=== PATIENT | male | born 1950 | race Asian ===

== ENCOUNTER 2019-11-28 18:45 | Emergency (ER) | payer MEDICARE, SELFPAY ==
--- NOTE | ~2019-11-28 | XR_ITS ---
EXAMINATION: XR shoulder RT min 2V DATE: 11/28/2019 19:40 INDICATION: Right shoulder pain. Fall. TECHNIQUE: 4 views of right shoulder were obtained. COMPARISON: None. FINDINGS: Bone alignment is normal. No fracture. There is mild osteoarthritis of glenohumeral joint a nd moderate osteoarthritis of acromioclavicular joint. There is a punctate calcification in the area of subacromial/subdeltoid bursa. IMPRESSION: 1. Polyarticular osteoarthritis. Reviewed, dictated and finalized at location A.
--- NOTE | ~2019-11-28 | CT_ITS ---
EXAMINATION: CT brain wo con DATE: 11/28/2019 19:32 INDICATION: Head injury. TECHNIQUE: Computed tomography (CT) of the head was performed without intravenous contrast. The mA wa s adjusted according to patient size. Iterative reconstruction technique was employed. The dose-lengt h product was 605.33 mGy-cm. COMPARISON: None FINDINGS: There is no intracranial hemorrhage, acute infarction, or abnormal intracranial mass lesion . The ventricles are normal in size. There is mild mucosal thickening in the paranasal sinuses. The m astoid air cells are normal. The orbits are normal. IMPRESSION: 1. Normal brain. Reviewed, dictated and finalized at location A. IMPRESSION: 1. Normal brain.
[2019-11-28 18:45] VITALS: BP 148/76; PULSE 60; RESP 19; TEMP 36.5; O2SAT 98
--- NOTE | 2019-11-28 18:50 | PC.NURSE ---
Pt unable to provide name of blood pressure medication he takes at this time,family unaware of name
--- NOTE | 2019-11-28 19:19 | ED.UPPEXIN ---
HPI - Extremity Injury (Upper) General Chief Complaint: Extremity Injury, Upper Stated Complaint: shoulder pain Time Seen by Provider: 11/28/19 19:02 Source: patient Mode of arrival: ambulatory Limitations: language barrier (Speaks Greenlandic with limited Spanish, son bilingual and translating) History of Present Illness HPI narrative: Patient is a 69-year-old male who presents to the emergency department with complaint of right shoulder injury from a fall. Patient was carrying a box of supplies and went up 1 step, tripping and falling. He fell into the side of the house striking his right shoulder and at some point hit the top of his head. Patient is uncertain if there was loss of consciousness. Patient denies any neck or back pain. He denies any other extremity injury. complaint: injury to: right and shoulder Other injuries: head Place: home Context: fall Associated symptoms: denies other symptoms Related Data Home Medications Medication Instructions Recorded Confirmed Unable to Obtain Home Medications 11/28/19 11/28/19 Allergies Allergy/AdvReac Type Severity Reaction Status Date / Time No Known Allergies Allergy Verified 11/28/19 18:49 Review of Systems Review of Systems: All systems reviewed & are unremarkable except as noted in HPI and below PMFSH Past Medical History Medical History (Updated 11/28/19 @ 20:12 by Afshan Casas MD) Hyperlipidemia Hypertension Surgical History Surgical History (Updated 11/28/19 @ 19:29 by Afshan Casas MD) No significant past surgical history Social History Social History (Updated 11/28/19 @ 19:29 by Afshan Casas MD) Smoking status: Former smoker Living arrangements: with family Gender identity (if verbalized by the patient): Male Exam Const: General: cooperative, no acute distress and alert Nutritional Appearance: well nourished Orientation/consciousness: patient oriented x3 Limitations: no limitations HENMT: Head images: 1. Abrasions/contusions Eyes: Conjunctivae: conjunctivae normal Pupils: Equal, round and reactive pupils present Resp: Effort & Inspection: normal respiratory effort Auscultation: clear to auscultation bilaterally Cardio: Rate: regular rate Rhythm: regular rhythm GI: GI Palp: Yes Soft to palpation and No Tenderness to palpation present (GI) Auscultation: normal bowel sounds Skin: General skin exam: normal color Neuro: General: patient oriented x3 Cognition (Neuro): normal cognition Speech: normal speech Extrem: General: normal to inspection, full ROM and no clubbing, cyanosis or edema Right upper extremity: shoulder/upper arm tenderness and abnormal ROM pain with active ROM Psych: Mental Status: mental status grossly normal Affect: normal affect Attitude: cooperative Course Course Emergency Course: Patient without any significant injuries noted on imaging. Patient ambulatory in the hallway in the ED with steady gait. Advised importance of primary care follow-up if necessary for any persistent symptoms and to return to the ED for any worsening symptoms or issues. Vital Signs Vital signs: Vital Signs Temperature 97.7 F 11/28/19 18:45 Pulse Rate 60 11/28/19 18:45 Respiratory Rate 19 11/28/19 18:45 Blood Pressure 148/76 H 11/28/19 18:45 Pulse Oximetry 98 11/28/19 18:45 Temperature 97.7 F 11/28/19 18:45 Pulse Rate 60 11/28/19 18:45 Respiratory Rate 19 11/28/19 18:45 Blood Pressure 148/76 H 11/28/19 18:45 Pulse Oximetry 98 11/28/19 18:45 MDM - Extremity Injury (Upper) Imaging Data Radiologist's impression: ITS Impressions Head CT 11/28/19 19:32 IMPRESSION: 1. Normal brain. Shoulder X-Ray 11/28/19 19:42 IMPRESSION: 1. Polyarticular osteoarthritis. Critical Care Time Critical Care Time Critical Care Time: No Discharge Plan Discharge Clinical Impression: Minor closed head injury Contusion of right should
--- NOTE | 2019-11-28 19:22 | PC.NURSE ---
Patient being taken to radiology.
[2019-11-28] MEDS: ACETAMINOPHEN 500 MG TABLET 1000 MG PO (19:41)
[2019-11-28 20:22] VITALS: BP 135/80; PULSE 60; RESP 16; O2SAT 99
== END 2019-11-28 20:24 | disposition home or self-care (01) ==
PROVIDERS: Emergency Provider Emergency Medicine; PCP Internal Medicine
DX: S40.011A Contusion of right shoulder, initial encounter (principal); S09.90XA Unspecified injury of head, initial encounter; I10 Essential (primary) hypertension; E78.5 Hyperlipidemia, unspecified; Z87.891 Personal history of nicotine dependence; W10.9XXA Fall (on) (from) unspecified stairs and steps, initial encounter
CPT/HCPCS: 70450; 73030; 99284; A9270

== ENCOUNTER 2024-08-23 08:33 | Outpatient (CLI) | payer MEDICARE, SELFPAY ==
--- NOTE | ~2024-08-23 | XR_ITS ---
Left ankle Technique: AP, oblique, and lateral views were obtained. Clinical History: Pain Findings: No acute fracture or dislocation is seen. Osseous alignment is anatomic. Ankle mortise and other visualized joint spaces are preserved. Soft tissues are otherwise unremarkable. Impression: Unremarkable left ankle. Reviewed, dictated and finalized at location . 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
--- NOTE | ~2024-08-23 | XR_ITS ---
Right ankle Technique: AP, oblique, and lateral views were obtained. Clinical History: Pain Findings: No acute fracture or dislocation is seen. Osseous alignment is anatomic. Ankle mortise and other visualized joint spaces are preserved. Soft tissues are otherwise unremarkable. Impression: No acute abnormality. Reviewed, dictated and finalized at [facility]. [employer] Impression: No acute abnormality.
--- OUTSIDE RECORDS SUMMARY | 2024-08-23 08:54 | XMS_ITS | Encounter Summary ---
Author Organization [facility] Address [address] [place] [address]. [place], [place] [id number] [place] [id number] Care Team Providers Care Unhairer Name Role Phone Kenneth Frederick MD Primary Care Provider [phone] Encounter Details Date Type Department Care Team (Latest Contact Info) Description 06/02/2018 Abstract [facility] , Giana Quintero MD Social History Tobacco Use Types Packs/Day Years Used Date Smoking Tobacco: Never Assessed Sex and Gender Information Value Date Recorded Sex Assigned at Not on file Legal Sex Male 7:32 PM CDT Gender Identity Not on file Sexual Orientation Not on file documented as of this encounter Plan of Treatment Not on file documented as of this encounter Visit Diagnoses Not on filedocumented in this encounter Care Teams Unhairer Relationship Specialty Start Date End Date Kenneth Frederick MD PCP - General INTERNAL MEDICINE 09/24/18 documented as of this encounter
--- OUTSIDE RECORDS SUMMARY | 2024-08-23 08:54 | XMS_ITS | Referral Summary ---
Author Organization [facility] Address [address] [place] [address] Care Team Providers Care Projector Booth Operator Name Role Phone Stefano Driver DO Unavailable [phone] Kenneth Frederick MD Primary Care Provider [phone] Allergies No known active allergies Medications rosuvastatin (CRESTOR) 20 mg tablet TAKE ONE TABLET BY MOUTH ONCE DAILY 01/27/2020 Active psyllium 0.52 gram capsule Take 1 capsule every day by oral route. 07/30/2019 Active lisinopriL (PRINIVIL,ZESTR IL) 10 mg tablet Take 1 tablet(s) every day by oral route. 01/27/2020 Active cholecalciferol (VITAMIN D-3) 5,000 unit tablet Take 1 tablet every day by oral route. 01/27/2020 Active carvediloL (Coreg) 6.25 mg tablet Take 1 tablet(s) twice a day by oral route. 01/27/2020 Active aspirin 81 mg enteric coated tablet Take 1 tablet every day by oral route. 01/27/2020 Active omeprazole (PriLOSEC) 20 mg capsule TAKE ONE CAPSULE BY MOUTH ONCE DAILY NEEDED 04/15/2021 Active folic acid (FOLVITE) 1 mg tablet TAKE 1 TABLET BY MOUTH EVERY DAY 30 tablet 11/19/2021 Active Active Problems Problem Noted Date Diagnosed Date Anemia 04/24/2021 Benign hypertension 04/24/2021 Benign prostatic hyperplasia without urinary obs truction 04/24/2021 Hyperlipidemia 04/24/2021 Immunizations Name Administration Dates Next Due Influenza, Quadrivalent, Split, Intramuscular ,04/27/2018 Influenza, Trivalent, High D ose, Split, Preservative Free, Intramuscular 06/26/2017 Pneumococcal Conjugate PCV 13 03/22/2016 Pneumococcal Polysaccharide PPV23 10/08/2017 Tdap 03/22/2016 ZOSTER LIVE 04/11/2019 Social History Tobacco Use Types Packs/Day Years Used Date Smoking Tobacco: Never Smokeless Tobacco: Never AUDIT-C Answer Date Recorded Q1: How often do you have a drink containing alc ohol? Never 04/26/2021 Q2: How many drinks containi ng alcohol do you have on a typical day when you are drinking? 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 Gender Identity Not on file Sexual Orientation Not on file Occupation Industry Job Start Date Job End Date Retired Not on file Not on file Not on file Last Filed Vital Signs Vital Sign Reading Time Taken Comments Blood Pressure 167/89 04/26/2021 8:44 AM CDT Pulse 56 04/26/2021 8:44 AM CDT Temperature 36.4 ??C (97.5 ??F) 04/26/2021 8:44 AM CD T Respiratory Rate 16 04/26/2021 8:44 AM CDT Oxygen Saturation 98% 04/26/2021 8:44 AM CDT Inhaled Oxygen Concentration - - Weight 78.9 kg (174 lb) 04/26/2021 8:44 AM CDT Height 163.8 cm (5' 4.5 ) 04/26/2021 8:44 AM CDT Body Mass Index 29.41 04/26/2021 8:44 AM CDT Plan of Treatment Not on file Insurance MEDICARE MEDICARE Care Teams Projector Booth Operator Relationship Specialty Start Date End Date Kenneth Frederick MD [address] [facility] [address] [place] [address] PCP - General Internal Medicine 04/24/21 Stefano Driver DO [address] [place] [address] MEDICAL ONCOLOGY, [facility] [address] [place] [address] Medical Oncologist/Cargoman Hematology and Oncology 04/24/21
--- OUTSIDE RECORDS SUMMARY | 2024-08-23 08:54 | XMS_ITS | Clinical Summary ---
Author Organization [facility] Address [address] [place] [address]. [place], [place] [id number] [place] [address] Care Team Providers Care Hand Striper Name Role Phone Kenneth Frederick MD Primary Care Provider Allergies No known active allergies Medications aspirin 81 MG chewable tablet 05/11/2014 Act kerry atenolol 50 MG tablet 06/19/2012 Active atorvastatin 20 MG tablet 07/17/2012 Active carvedilol 6.25 MG tablet 07/23/2018 Active lisinopril 10 MG tablet 07/23/2018 Active omeprazole 20 MG capsule 07/23/2018 Active Active Problems No known active problems Family History Relation Status Comments Father Mother Social History Tobacco Use Types Packs/Day Years Used Date Smoking Tobacco: Never Smokeless Tobacco: Never Alcohol Use Standard Drinks/Week Comments Yes 0 (1 standard drink = 0.6 oz pur e alcohol) socially PHQ-2 Answer Date Recorded PHQ-2 Score - If the patient scores above 3, please move on to questions 3-9 0 03/20/2021 Sex and Gender Information Value Date Recorded Sex Assigned at Not on file Legal Sex Male 7:32 PM CDT Gender Identity Not on file Sexual Orientation Not on file Last Filed Vital Signs Vital Sign Reading Time Taken Comments Blood Pressure 122/70 03/20/2021 11:40 AM CDT Pulse 60 03/20/2021 11:40 AM CDT Temperature 36.2 ??C (97.2 ??F) 03/20/2021 11:40 AM C DT Respiratory Rate 16 03/20/2021 11:40 AM CDT Oxygen Saturation 99% 03/20/2021 11:40 AM CDT Inhaled Oxygen Concentration - - Weight 76.7 kg (169 lb) 03/20/2021 11:40 AM CDT Height 167.6 cm (5' 6 ) 03/20/2021 11:40 AM CDT Body Mass Index 27.28 03/20/2021 11:40 AM CDT Plan of Treatment Health Maintenance Due Date Last Done Comments Colorectal Cancer Screening Colonoscopy (10 Years) 1950 Hepatitis C 1968 Annual Medicare Wellness Visit 2015 Zoster Vaccines (2 of 3) 06/06/2019 04/11/2019 COVID-19 Vaccine (3 - 2023-2 5 season) 2024 11/11/2020, 11/11/2020, 10/21/2020 Influenza Adult (#1) 2024 07/02/2019, 04/27/2018 RSV Immunization or 60+ Years (1 - 1-dose 75+ series) 2025 DTaP, Tdap and Td Vaccines ( 2 - Td or Tdap) 03/22/2026 03/22/2016 Pneumococcal Vaccine: 65+ Years Completed 10/08/2017, 03/22/2016 Meningococcal B Vaccine Aged Out No l onger eligible based on patient's age to complete this topic Meningococcal Vaccine Aged Out No yvonne jocelyn eligible based on patient's age to complete this topic RSV Immunizations Under 20 Months Aged Out No longer eligible b ased on patient's age to complete this topic Insurance MEDICARE Care Teams Hand Striper Relationship Specialty Start Date End Date Kenneth Frederick MD PCP - General INTERNAL MEDICINE 09/24/18
--- OUTSIDE RECORDS SUMMARY | 2024-08-23 08:54 | XMS_ITS | Data Portability ---
Author Organization [facility] [employer] Address [address] [address] Care Team Providers Care Manager Of Drilling Name Role Phone KENNETH FREDERICK Primary Care Provider Assessment Encounter Date Assessment Date Assessment LastModified by Organization Details LastModified Time 11/27/2022 11/27/2022 Patient presented for follow up. Studies ordered as below. Discussed plan with patient/careg cher, who expressed understanding . Follow up as noted below. Not available 11/27/2022 09:04:29 02/27/2023 02/27/2023 Patient presented for follow up. Studies ordered as below. Discussed plan with patient/careg cher, who expressed understanding . Follow up as noted below. Not available 02/27/2023 09:11:39 09/15/2023 09/15/2023 Patient presented for follow up. Studies ordered as below. Discussed plan with patient/careg cher, who expressed understanding . Follow up as noted below. Not available 09/15/2023 11:22:26 Plan of Treatment Reminders Order Date Submit Date Provider Last Modified By Organization Details Last Modified Time Details Appointments KRISTY 2024 10:00A M US CAROTID ARTERY Not available Not available Not available ESTABLISH ED PATIENT 15 2024 10:30A M Kenneth Frederick MD Not available Not available Not available Lab CMP, serum or plasma 2022 023 BE[facility], [address] [facility], [place], [address], 12/02/2022 14:50:53 CBC w/ auto diff 2022 023 BELL [facility], [address] [place], [address], 12/02/2022 14:50:53 HbA1c (hemoglob in A1c), blood 2022 023 BELL [facility], [address] [place], [address], 12/04/2022 05:26:50 lipid panel, serum 2022 023 [facility], [address] [place], [address], 12/04/2022 05:27:39 vitamin D, 25-hydrox y, total, serum 2022 023 [facility], [address] [place], [address], 12/04/2022 05:27:20 CMP, serum or plasma 2022 023 [facility], [address] [place], [address], 02/28/2023 14:29:40 PSA, serum or plasma 2023 024 [facility], [address] [place], [address], 09/22/2023 04:03:13 vitamin D, 25-hydrox y, total, serum 2023 024 [facility], [address] [place], [address], 09/22/2023 04:03:13 CMP, serum or plasma 2023 024 [facility], [address] [place], [address], 09/16/2023 15:05:12 CBC w/ auto diff 2023 024 [facility], [address] [place], [address], 11/20/2023 00:26:58 lipid panel, serum 2023 024 [facility], [address] [place], [address], 11/20/2023 00:35:48 TSH, serum or plasma 2023 024 BELL [facility], [address] [place], [address], 09/22/2023 04:03:13 CMP, serum or plasma 2023 024 [place] [facility], [address] [place], [address], 03/02/2024 15:44:48 CBC w/ auto diff 2023 024 [facility], [address] [place], [address], 03/02/2024 15:44:52 HbA1c (hemoglob in A1c), blood 2023 024 [place] [facility], [address] [place], [address], 03/02/2024 15:44:47 C-peptide , serum 2023 024 [facility], [address] [place], [address], 03/08/2024 04:03:42 iron + TIBC + ferritin, serum 2023 024 [place] [facility], [address] [place], [address], 03/08/2024 04:03:42 vitamin B12 + folate, serum or blood 2023 024 [facility], [address] [place], [address], 03/08/2024 04:03:42 TSH, serum or plasma 2023 024 [facility], [address] [place], [address], 03/08/2024 04:03:42 vitamin D, 25-hydrox y, total, serum 2023 024 [facility], [address] [place], [address], 03/08/2024 04:03:43 vitamin B12 + folate, serum or blood 2024 025 [facility], [address] [place], [address], 08/17/2024 12:11:40 HbA1c (hemoglob in A1c), blood 2024 025 [facility], [address] [place], [address], 08/18/2024 16:56:38 CMP, serum or plasma 2024 025 [facility], [address] [place], [address], 08/18/2024 16:56:40 CBC w/ auto diff 2024 025 [facility], [address] [place], [address], 08/18/2024 16:56:43 C-peptide , serum 2024 025 [facility], [address] [place], [address], 08/17/2024 12:11:44 lipid panel w/ direct LDL, serum 2024 025 [facility], [address] [place], [address], 08/17/2024 12:11:41 TSH, serum or plasma 2024 025 [facility], [address] [place], [address], 08/17/2024 12:11:42 PSA, serum or plasma 2024 025 [facility], [address] [place], [address], 08/17/2024 12:11:43 vitamin D, 25-hydrox y, total, serum 2024 025 [facility], [address] [place], [address], 08/17/2024 12:11:40 erythrocy te sedimenta tion rate by westergre n method 2024 025 [facility], [address] [place], [address], 08/17/2024 12:11:37 uric acid, serum or plasma 2024 025 [employer] [facility], [address] [place], [address], 08/18/2024 16:56:[address] referral 2022 023 BELL [facility] [address], [place], [address], 11/18/2023 08:22:00 urologist referral 2022 023 BELL Dominique MD, [address] [facility], [facility] [address], [place], [address], 12/19/2022 11:45:[address] referral 2022 023 BELL [address], [place], [address], 03/27/2023 05:35:06 Procedures None recorded. Surgeries None recorded. Imaging electroca rdiogram 2022 023 [facility], [facility], [address], [place], [address], 11/27/2022 17:02:26 electroca rdiogram 2023 024 [facility], [facility], [address], [place], [address], 03/03/2024 09:17:40 MRI, lumbar spine, w/o contrast [address] [facility], [address] [address], [address], [place], [address], 08/17/2024 12:19:06 XR, ankle, 3 or more view 2024 025 [facility], [address] [facility] [address], [place], [address], 08/17/2024 12:20:29 Medication Orders folic acid 1 mg tablet 2022 023 [id number] [facility], [address] [facility], [place], [address], 11/27/2022 09:53:41 Vitamin D3 125 mcg (5,000 unit) tablet 2022 023 [facility] [address] [facility], [place], [address], 11/27/2022 09:53:41 rosuvasta tin 20 mg tablet 2023 024 [facility] [address], [address] [place], [address], 03/01/2024 11:18:46 Tylenol Extra Strength 500 mg tablet 2023 024 [facility], [address], [place], [address], 03/01/2024 11:18:45 Aspercrem e (lidocain e HCl) 4 % topical 2023 024 [email or web address] [address], [address], [place], [address], 03/15/2024 10:01:19 meloxicam 7.5 mg tablet 2024 025 [facility], [address], [place], [address], 08/17/2024 12:11:27 Patient TargetsNo targets recorded. Patient Instructions Encounter Date Encounter Id Patient Instructions Last Modified By Organization Details Last Modified Time 11/27/2022 [id number] anemia: care instructions mshenouda Not available 11/27/2022 09:53:38 high cholesterol : care instructions mshenouda Not available 11/27/2022 09:53:38 prostate biopsy: about this test mshenouda Not available 11/27/2022 09:53:38 colon polyps: care instructions mshenouda Not available 11/27/2022 09:53:38 learning about healthy weight mshenouda Not available 11/27/2022 09:53:38 living will mshenouda Not available 09/2022 09:46:41 02/27/2023 [id number] prostate biopsy: about this test mshenouda Not available 02/27/2023 09:52:00 learning about healthy weight mshenouda Not available 02/27/2023 09:52:00 high cholesterol : care instructions mshenouda Not available 02/27/2023 09:52:00 09/15/2023 [id number] prostate biopsy: about this test mshenouda Not available 09/15/2023 12:16:09 learning about healthy weight mshenouda Not available 09/15/2023 12:16:09 high cholesterol : care instructions mshenouda Not available 09/15/2023 12:16:09 03/01/2024 [id number] anemia: care instructions mshenouda Not available 03/01/2024 11:18:36 high cholesterol : care instructions mshenouda Not available 03/01/2024 11:18:35 prostate biopsy: about this test mshenouda Not available 03/01/2024 11:18:35 colon polyps: care instructions mshenouda Not available 03/01/2024 11:18:35 learning about healthy weight mshenouda Not available 03/01/2024 11:18:36 living will mshenouda Not available 11/2023 11:10:44 08/17/2024 [id number] (KRISTY) ankle brachial index* BELL Not available 08/17/2024 14:22:39 high cholesterol : care instructions mshenouda Not available 08/17/2024 12:11:22 prostate biopsy: about this test mshenouda Not available 08/17/2024 12:11:22 Reason for Referral Urologist Referral for Prost ate specific antigen above reference range Referring Physician: Kenneth Frederick, Internal Medicine, Encounter Date: 11/27/2022 Counter Sales Representative Referral for Jorge ign hypertension Referring Physician: Kenneth Frederick, Internal Medicine, Encounter Date: 11/27/2022 Counter Sales Representative Referral for Jorge ign hypertension Referring Physician: Kenneth Frederick, Internal Medicine, Encounter Date: 02/27/2023 Results Created Date Observation Date Name Description Value Unit Range Abnormal Flag Note LastModifiedBy Organization Detail LastModifiedTime 11/28/19 23 11/27/2022 elect joel hopkins am No observ ation record ed. [facility], [facility] [address], [place], [address], 02/27/2023 09:44:30 11/28/19 23 11/27/2022 elect rocshari tylergr am No observ ation record ed. [facility], [facility] [address], [place], [address], 02/27/2023 09:44:30 03/01/20 24 03/03/2024 elect joel tylergr am No observ ation record ed. [facility], [facility] [address], [place], [address], 08/17/2024 11:59:48 03/03/2003/02/2024 georgiana hopkins am No observ ation record ed. [facility], [facility] [address], [place], [address], 08/17/2024 11:59:49 Result Notes None recorded. 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 796781720 Active 2024 Kenneth Frederick MD [address], [place], [address] , [facility] 5 22:58:34 Benign prostati c hyperpla josh without outflow obstruct ion 156180071 Active Not Available [facility] 3 12:27:11 Polyp of colon 84690360 Active Not Available [facility] 3 12:27:11 Diastoli c dysfunct ion 6569988 Active Not Available [facility] 3 12:27:11 Benign hyperten naz 86027586 Active Not Available [facility] 3 12:27:11 Blood glucose outside referenc e range 717436299 Active Not Available [facility] 3 12:27:11 Hyperlip idemia 48075227 Active Not Available [facility] 3 12:27:11 Divertic duke of intestin e 76406213 Completed 10/08/2017 Kenneth Frederick MD [address], [place], [address] , [facility] 8 14:54:58 Prostate specific antigen above referenc e range 842646666 Active Not Available [facility] 3 12:27:11 Vitamin D deficien cy 82861059 Active 2017 Not Available [facility] 3 12:27:11 Body mass index 25-29 - overweig ht 604555514 Active 2018 Not Available [facility] 3 12:27:11 Ex-cigar ette smoker 945316761 Active 2018 Not Available [facility] 3 12:27:11 Left ventricu lar hypertro phy 48572487 Active 2019 Not Available [facility] 3 12:27:11 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 Procedures Surgical History Date Name Laterality Status Provider Name and Address Organization Details Recorded Time 7 Colonoscopy completed Kenneth Frederick MD [address], [place], [address], [facility] 02/09/2019 15:12:20 9 Colonoscopy completed Ramya Valles [facility] 03/22/2016 08:42:00 Imaging Results Imaging Date Name Status LastModified by Organization Details LastModified Time 11/27/2022 [facility], [facility] [address], [place], [address], 02/27/2023 09:44:30 11/27/2022 electrocardiogram completed [facility], [facility] [address], [place], [address], 02/27/2023 09:44:30 03/03/2024 electrocardiogram completed [facility], [facility] [address], [place], [address], 08/17/2024 11:59:48 03/02/2024 electrocardiogram completed [facility], [facility] [address], [place], [address], 08/17/2024 11:59:49 Procedure Notes None recorded. Medical Equipment None Reported. Allergies No known drug allergies Medications Name Sig Start Date Stop Date Status Note LastModified by Organization Details LastModified Time carvedilol 6.25 mg tablet TAKE 1 TABLET BY MOUTH TWICE A DAY active Not Available Not Available No t Available atorvastati n 20 mg tablet TAKE ONE TABLET BY MOUTH ONCE DAILY AT BEDTIME 07/31 completed Not Available Not Available Not Available clindamycin HCl 300 mg capsule TAKE 1 CAPSULE BY MOUTH EVERY 8 HOURS 10/12 completed Not Available Not Available Not Available lisinopril 20 mg tablet TAKE 1 TABLET EVERY DAY BY ORAL ROUTE IN THE MORNING. active Not Available Not Available No t Available aspirin 81 mg tablet,jigar yed release Take 1 tablet every day by oral route. 2020 active Not Available Not Available Not Avai lable acetaminoph en 500 mg tablet TAKE 1 TABLET BY MOUTH EVERY 8 HOURS AROUND THE CLOCK. active Not Available Not Available No t Available meloxicam 7.5 mg tablet Take 1 tablet every day by oral route. 2024 active Not Available Not Available Not Avai lable lisinopril 10 mg tablet TAKE 1 TABLET BY MOUTH EVERY DAY 01/30 completed Not Available Not Available Not Available omeprazole 20 mg capsule,del ayed release TAKE ONE CAPSULE BY MOUTH ONCE DAILY NEEDED active Not Available Not Available No t Available folic acid 1 mg tablet TAKE 1 TABLET BY MOUTH EVERY DAY active Not Available Not Available No t Available mupirocin 2 % topical ointment APPLY TO AFFECTED AREA 3 TIMES A DAY 11/27 completed Not Available Not Available Not Available cholecalcif sven (vitamin D3) 125 mcg (5,000 unit) capsule TAKE 1 CAPSULE BY MOUTH EVERY DAY 02/27 completed Not Available Not Available Not Available atenolol 50 mg tablet Take 0.5 tablets twice a day by oral route. 06/09 completed Not Available Not Available Not Available ezetimibe 10 mg tablet Take 1 tablet every day by oral route. 2024 active Not Available Not Available Not Avai lable Metamucil 0.52 gram capsule Take 1 capsule every day by oral route. 2019 active Not Available Not Available Not Avai lable rosuvastati n 20 mg tablet TAKE ONE TABLET BY MOUTH ONCE DAILY 2024 active Not Available Not Available Not Avai lable Boostrix Tdap 2.5 Lf unit-8 mcg-5 Lf/0.5 mL intramuscul ar suspension 09/23 completed Not Available Not Available Not Available cholecalcif sven (vitamin D3) 125 mcg (5,000 unit) tablet TAKE 1 TABLET BY MOUTH EVERY DAY 2024 active Not Available Not Available Not Avai lable Aspercreme (lidocaine HCl) 4 % topical Apply 1 applicati on(s) twice a day by topical route. 2023 active Not Available Not Available Not Avai lable Shingrix (PF) 50 mcg/0.5 mL intramuscul ar suspension, kit 07/30 completed Not Available Not Available Not Available Fluzone High-Dose Quad (PF) 240 mcg/0.7 mL IM syringe [facility]ARMACY ADMINIST[facility] 01/16 completed Not Available Not Available Not Available Vitals Date Recorded Body height Body mass index (BMI) Body weight Body temperature Heart rate Respiratory rate Provider Name and Address Organization Details Last Updated DateTime 3 167.64 cm 28.7 kg/m2 65598.4 4 g 97.6 [degF] 60 /min 16 /min Yolanda Escamilla [facility] 3 09:04:18 Date Recorded Systolic blood pressure Diastolic blood pressure Provider Name and Address Organization Details Last Updated DateTime 11/27/2022 131 mm[Hg] 72 mm[Hg] Kenneth Frederick MD [address], [place], [address], [facility] 11/27/2022 09:50:01 Date Recorded Body height Body mass index (BMI) Body weight Heart rate Respiratory rate Body temperature Systolic blood pressure Diastolic blood pressure Provider Name and Address Organization Details Last Updated DateTime 3 167.64 cm 27.9 kg/m2 69138.4 8 g 57 /min 16 /min 97.7 [degF] 134 mm[Hg] 74 mm[Hg] Yolanda Francine [facility] 3 09:10:50 Date Recorded Body height Body temperature Body mass index (BMI) Body weight Respiratory rate Heart rate Systolic blood pressure Diastolic blood pressure Provider Name and Address Organization Details Last Updated DateTime 4 167.64 cm 97.9 [degF] 27.6 kg/m2 73716.3 g 16 /min 57 /min 127 mm[Hg] 68 mm[Hg] Yolanda Francine [facility] 4 11:24:11 Date Recorded Body height Heart rate Respiratory rate Body temperature Body mass index (BMI) Body weight Systolic blood pressure Diastolic blood pressure Provider Name and Address Organization Details Last Updated DateTime 4 167.64 cm 58 /min 16 /min 97.9 [degF] 27.9 kg/m2 01007.4 8 g 130 mm[Hg] 69 mm[Hg] Simon Hammondrett [facility] 4 10:43:44 Date Recorded Body height Body mass index (BMI) Body weight Body temperature Respiratory rate Heart rate Provider Name and Address Organization Details Last Updated DateTime 5 167.64 cm 27.9 kg/m2 20717.4 8 g 97.4 [degF] 16 /min 59 /min Yolanda Francine [facility] 5 11:18:30 Date Recorded Systolic blood pressure Diastolic blood pressure Provider Name and Address Organization Details Last Updated DateTime 08/17/2024 131 mm[Hg] 74 mm[Hg] Kenneth Frederick MD [address] [facility] [address], [place], [address], [facility] 08/17/2024 11:59:47 Social History Question Answer Notes LastModified by Organizat ion Details LastModified Time Tobacco Smoking Status Former Smoker Not Available [employer] 05/12/2020 03:11:40 Do You Have An Advance Directive? No Information not available 05/14/2021 What Is Your Level Of Alcohol Consumption? Occasional [id number] Information not available 05/12/2020 What Is Your Level Of Caffeine Consumption? Occasional Information not available 05/14/2021 Are There Any Guns Present In Your Home? No Information not available 05/14/2021 Live Alone Or With Others? With Others Information not available 05/14/2021 What Was The Date Of Your Most Recent Tobacco Screening? 10/16/2021 Information not available 10/16/2021 Performs Monthly Self-breast Exam? No Information not available 05/14/2021 Seat Belts Used Routinely Yes Information not available 05/14/2021 Smoke Alarm In Home Yes Information not available 05/14/2021 Do You Use Sunscreen Routinely? No Information not available 05/14/2021 Have You Used IV Drugs? No Information not available 05/14/2021 Sex: Unknown Functional Status Question Answer Note LastModified by Organization D etails LastModified Time Are you able to care for yourself? Yes Information n ot available 05/14/2021 Mental Status None recorded. Family History Relationship Description Onset Age of this Age Resolved Age Notes LastModified by Organization Details LastModified Time Mother Essential hypertension [email or web address] Not available 08:42:16 Medical History Condition Response Coronary Artery Disease N Gout N Other N Blood Diseases N Kidney Stones N Hyperthyroidism N Blood Transfusion N Breast Cancer N Hypothyroidism N Depression N COPD N Lung Disease N Defects or Inherited Disease N Developmental or Behavioral Disorders N Breast Problem N Difficulty Swallowing N Anesthesia Complications N Meniere's disease N Anxiety Disorder N Muscle, Joint, or Bone Problems N Obesity N Vision or Eye Problems N Arthritis N Polyps N Infertility N Mental Disorder N Cancer N Varicosities N Stroke N Endometriosis N Bladder or Kidney Problems N High Cholesterol N Liver Disease N Headaches N Fibromyalgia N Kidney Disease N Allergies/Hayfever N Heart Problems N Ear or Hearing Problems N Hospitalizations N Thyroid Problems N GI Problems N ADD/ADHD N Skin Problems N Eating Disorder N Anemia N MRSA exposure N Constipation N Mental Illness N Ovarian Cancer N Diabetes N Bedwetting N Seizures/Epilepsy N Tuberculosis N AIDS/HIV N Congestive Heart Failure (CHF) N Eczema N Diverticulitis N Abuse/Domestic Violence N Asthma N Reflux/GERD N Hepatitis N Heart Disease N Pulmonary Embolism N Chronic Ear Infections N Pre-Eclampsia N Hypertension N Chicken Pox N Autism Spectrum Disorder (ASD) N Osteoporosis N Thrombophilias N Immunizations Vaccine Type Date Status Note Provider Nam e and Address Organization Details Recorded Time Influenza, split virus, quadrivalent, preservative 8 completed Kenneth Frederick MD [address], [place], [address], [facility] 05/20/2023 15:00:26 pneumococcal polysaccharide PPV23 8 completed Kenneth Frederick MD [address], [place], [address], [facility] 05/20/2023 15:00:26 zoster live 9 completed Kenneth Frederick MD [address], [place], [address], [facility] 05/20/2023 15:00:27 Influenza, split virus, quadrivalent, preservative 9 completed Kenneth Frederick MD [address], [place], [address], [facility] 05/20/2023 15:00:26 Influenza, high-dose, quadrivalent, PF 0 completed Kenneth Frederick MD [address], [place], [address], [facility] 05/20/2023 15:00:26 Tdap 6 completed Kenneth Frederick MD [address], [place], [address], [facility] 05/20/2023 15:00:27 Pneumococcal conjugate PCV 13 6 completed Kenneth Frederick MD [address], [place], [address], [facility] 05/20/2023 15:00:27 SARS-COV-2 (COVID-19) vaccine, UNSPECIFIED 1 completed Kenneth Frederick MD [address], [place], [address], [facility] 05/20/2023 15:00:26 SARS-COV-2 (COVID-19) vaccine, UNSPECIFIED 2 completed Kenneth Frederick MD [address] [address], [place], [address], [facility] 05/20/2023 15:00:26 Influenza, split virus, quadrivalent, preservative 1 completed Kenneth Frederick MD [address], [place], [address], [facility] 05/20/2023 15:00:26 influenza, unspecified formulation 2 completed Kenneth Frederick MD [address], [place], [address], [facility] 05/20/2023 15:00:26 Influenza, adjuvanted, quadrivalent, PF 3 completed Kenneth Frederick MD [address], [place], [address], [facility] 05/20/2023 15:00:26 COVID-19, mRNA, LNP-S, PF, toshia-sucrose, 30 mcg/0.3 mL 3 completed Kenneth Frederick MD [address], [place], [address], [facility] 05/20/2023 15:00:26 Influenza, high-dose, trivalent, PF 4 completed Kenneth Frederick MD [address], [place], [address], [facility] 05/04/2024 18:52:11 COVID-19, mRNA, LNP-S, PF, toshia-sucrose, 30 mcg/0.3 mL 4 completed Kenneth Frederick MD [address], [place], [address], [facility] 05/20/2024 17:51:27 Past Encounters Encounter ID Performer Location Encounter Start Date Encounter Closed Date Diagnosis/Indication Diagnosis SNOMED-CT Code Diagnosis ICD10 Code Diagnosis Note [id number] Kenneth Frederick MD [facility], [facility] [address] [place] [address] 03/22/2016 12:03:15 03/22/2016 12:37:08 Renewal of prescription 231987222 Z76.0 Benign hypertension 1072 5009 I10 Blood gluc ose outside reference range 084892863 R73.09 Prostate s pecific antigen above reference range 739110431 R97.2 Hyperlipidemia 29396630 E78.5 Polyp of colon 57885005 K63.5 Screening procedure 2012 5006 Z13.9 Active or passive immunization 286405760 Z23 Viral screening 18044970 4 Z11.59 Vitamin D deficiency 347 61792 E55.9 [id number] Kenneth Frederick MD [facility] [facility], [facility] [address] [place] [address] 10/10/2016 11:13:39 10/10/2016 12:45:14 Renewal of prescription 310401624 Z76.0 Benign hypertension 1072 5009 I10 per pt had optometry eval 06/2106 Blood gluc ose outside reference range 380013792 R73.09 Benign pro static hyperplasia without outflow obstruction 776082879 N40.0 with elevated PSA //per pt seen urology 06/2016 , will try to get note , will recheck PSA Diastolic dysfunction 35 41909 I50.30 Grad 1 @ last ECHO 2013will recheck Hyperlipidemia 75019687 E78.5 Polyp of colon 99829394 K63.5 [id number] Kenneth Frederick MD [facility] [employer] [facility], [facility] [address] [place] [address] 03/19/2017 10:00:20 03/19/2017 10:27:07 Renewal of prescription 680270483 Z76.0 Benign hypertension 1072 5009 I10 per pt had optometry eval 06/2106 Vitamin D deficiency 347 31617 E55.9 Hyperlipidemia 43611546 E78.5 Prostate s pecific antigen above reference range 523115730 R97.20 sees urology once a year Gastroesop hageal reflux disease without esophagitis 734499421 K21.9 Screening for malignant neoplasm of colon 638450031 Z12.11 per pt seen GI and had C scope 2016 ?? [id number] Kenneth Frederick MD [facility] [employer] [facility], [facility] [address] [place] [address] 06/26/2017 08:54:39 06/26/2017 09:27:44 Benign hypertension 08402649 I10 Blood gluc ose outside reference range 769605122 R73.09 Benign pro static hyperplasia without outflow obstruction 706218497 N40.0 seeing urology 07/24/17 per pt Hyperlipidemia 69072357 E78.5 Polyp of colon 12419867 K63.5 Active or passive immunization 502414943 Z23 [id number] Kenneth Frederick MD [employer] [facility], [email or web address] [address] [place] [address] 10/08/2017 14:31:59 10/08/2017 15:06:40 Adult health examination 741820517 Z00.00 Benign hypertension 1072 5009 I10 Blood gluc ose outside reference range 726306703 R73.09 Benign pro static hyperplasia without outflow obstruction 177763392 N40.0 seeing urology 07/24/17 per pt Prostate s pecific antigen above reference range 503006212 R97.20 sees urology once a year Hyperlipidemia 45472051 E78.5 Polyp of colon 77717757 K63.5 Diverticul osis of colon without diverticulitis 822947964 K57.30 Vitamin D deficiency 347 56708 E55.9 Gastroesop hageal reflux disease without esophagitis 155868593 K21.9 education about PPI SE Left ventr icular hypertrophy 14809243 I51.7 mod on ECHO 10/31/2016 , Active or passive immunization 984835731 Z23 Screening for malignant neoplasm of colon 085930095 Z12.11 per pt seen GI and had C scope 2016 ?? , will try to get report [id number] Kenneth Frederick MD [employer] [facility], [email or web address] [address] [place] [address] 02/16/2018 12:19:20 02/16/2018 13:37:35 Benign hypertension 31882686 I10 Hyperlipidemia 21402750 E78.5 Vitamin D deficiency 347 69068 E55.9 Gastroesop hageal reflux disease without esophagitis 889836479 K21.9 education about PPI SE Benign pro static hyperplasia without outflow obstruction 977289537 N40.0 seeing urology 07/24/17 per pt Blood gluc ose outside reference range 279930562 R73.09 Screening for malignant neoplasm of colon 827987125 Z12.11 per pt seen GI and had C scope 2016 ?? Active or passive immunization 245384538 Z23 Ex-cigarette smoker 2810 06693 Z87.891 [id number] Kenneth Frederick MD [employer], [facility] [address] [place] [address] 08/25/2018 12:17:39 08/25/2018 13:29:16 Benign hypertension 39245167 I10 Hyperlipidemia 25465965 E78.5 Vitamin D deficiency 347 57181 E55.9 Gastroesop hageal reflux disease without esophagitis 572378257 K21.9 education about PPI SE Benign pro static hyperplasia without outflow obstruction 316528704 N40.0 seeing urology 07/24/17 per pt Blood gluc ose outside reference range 760937152 R73.09 Screening for malignant neoplasm of colon 636058141 Z12.11 per pt seen GI and had C scope 2016 ?? Active or passive immunization 771332255 Z23 Ex-cigarette smoker 2810 42082 Z87.891 Prostate s pecific antigen above reference range 115765682 R97.20 sees urology once a year [id number] Kenneth Frederick MD [employer], [facility] [address] [place] [address] 01/27/2019 11:08:25 01/27/2019 11:46:52 Adult health examination 411884169 Z00.01 Benign hypertension 1072 5009 I10 Hyperlipidemia 28571445 E78.5 last LD 08/25/18 Vitamin D deficiency 347 36882 E55.9 last level 08/25/18 Gastroesop hageal reflux disease without esophagitis 686407413 K21.9 education about PPI SE Benign pro static hyperplasia without outflow obstruction 488982342 N40.0 seeing urology every 6 months , last visit 08/2018 Prostate s pecific antigen above reference range 866960495 R97.20 sees urology once a year Blood gluc ose outside reference range 522159479 R73.09 Screening for malignant neoplasm of colon 214422119 Z12.11 per pt seen GI and had C scope 2016 ?? Active or passive immunization 348654145 Z23 Ex-cigarette smoker 2810 68294 Z87.891 quit smoking 1989 Body mass index 25-29 - overweight 511082131 Z68.27 [id number] Kenneth Frederick MD [facility], [facility] [address] [place] [address] 07/30/2019 10:32:27 07/30/2019 11:40:10 Benign hypertension 85403214 I10 Hyperlipidemia 30513245 E78.5 last LD 08/25/18 Diverticul osis of colon without diverticulitis 591628383 K57.30 Gastroesop hageal reflux disease without esophagitis 555543315 K21.9 education about PPI SE Vitamin D deficiency 347 56431 E55.9 last level 08/25/18 Prostate s pecific antigen above reference range 607476528 R97.20 sees urology once a yearlast visit 02/2019 , PSA was 5.9 Blood gluc ose outside reference range 928144415 R73.09 Screening for malignant neoplasm of colon 945623952 Z12.11 per pt seen GI and had C scope 2016 ?? Active or passive immunization 430258585 Z23 up to date Left ventr icular hypertrophy 46299326 I51.7 mod on ECHO 10/31/2016 , [id number] Kenneth Frederick MD [facility], [facility] [address] [place] [address] 01/27/2020 10:30:03 01/27/2020 11:15:50 Benign hypertension 08173777 I10 last EKG 07/30/19 Benign pro static hyperplasia without outflow obstruction 784209029 N40.0 seeing urology every 6 months , last visit 08/2018 Blood gluc ose outside reference range 062498952 R73.09 Body mass index 25-29 - overweight 143878492 Z68.27 education Hyperlipidemia 63511182 E78.5 last LD 07/30/19 above goal , changed to rosuva , recheck Vitamin D deficiency 347 58621 E55.9 last level 07/30/19 Screening for malignant neoplasm of colon 152219937 Z12.11 per pt seen GI and had C scope 2016 ?? Active or passive immunization 426645646 Z23 up to date Degenerati ve joint disease of shoulder region 11324923 M19.019 Rt on the X ray 11/28/19tyle nol 500 TID Left ventr icular hypertrophy 28868367 I51.7 mod on ECHO 10/31/2016 , recheck [id number] Kenneth Frederick MD [employer], [email or web address] [address] [place] [address] 08/01/2020 10:03:14 08/01/2020 11:15:53 Adult health examination 545407834 Z00.01 Benign hypertension 1072 5009 I10 last EKG 07/30/19 Benign pro static hyperplasia without outflow obstruction 519613135 N40.0 seeing urology every 6 months , last visit 08/2018 Blood gluc ose outside reference range 986898934 R73.09 Body mass index 25-29 - overweight 178245829 Z68.27 education Degenerati ve joint disease of shoulder region 38361092 M19.019 Rt on the X ray 11/28/19tyle nol 500 TID Ex-cigarette smoker 2810 13738 Z87.891 quit smoking 1989 Hyperlipidemia 42850011 E78.5 last LD 01/27/20 @ goal , on rosuva , recheck Left ventr icular hypertrophy 44308835 I51.7 mod on ECHO 03/29/20 Polyp of colon 79764159 K63.5 last C scope 2016 Prostate s pecific antigen above reference range 135233330 R97.20 sees urology once a yearlast visit 02/2019 , PSA was 9.6 0n 01/27/20 Vitamin D deficiency 347 45207 E55.9 last level 07/30/19 Screening for malignant neoplasm of colon 017077629 Z12.11 per pt seen GI and had C scope 2016 , good for 10 years Active or passive immunization 378515624 Z23 up to date [id number] Kenneth Frederick MD [employer], [email or web address] [address] [place] [address] 01/30/2021 09:25:48 01/30/2021 10:52:58 Benign hypertension 49818719 I10 last EKG 08/02/20incr ease lisinopril BP 2 weeks Benign pro static hyperplasia without outflow obstruction 348838969 N40.0 seeing urology every 6 months , last visit 08/2018 Body mass index 25-29 - overweight 865628043 Z68.27 education Diastolic dysfunction 35 60058 I50.30 Grad 1 @ last ECHO 2013 //will recheck Ex-cigarette smoker 2810 04977 Z87.891 quit smoking 1990 Hyperlipidemia 74713485 E78.5 last LD 08/01/20 @ goal , on rosuva , recheck Polyp of colon 41562916 K63.5 last C scope 2016 Prostate s pecific antigen above reference range 075317428 R97.20 sees urology once a yearlast visit 02/2019 , PSA was 7.4 on 08/01/20 Vitamin D deficiency 347 84930 E55.9 last level 07/30/19 Screening for malignant neoplasm of colon 684449409 Z12.11 per pt seen GI and had C scope 2016 , good for 10 years Active or passive immunization 100957602 Z23 up to date [id number] Kenneth Frederick MD [employer], [facility] [address] [place] [address] 05/14/2021 10:34:21 05/14/2021 11:29:50 Benign hypertension 95392096 I10 last EKG 08/02/20incr ease lisinopril BP 2 weeks Benign pro static hyperplasia without outflow obstruction 842443628 N40.0 seeing urology every 6 months , last visit 08/2018 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 Blood gluc ose outside reference range 078623754 R73.09 Body mass index 25-29 - overweight 649381442 Z68.27 education Hyperlipidemia 10030651 E78.5 last LD 08/01/20 @ goal , on rosuva , recheck Vitamin D deficiency 347 82986 E55.9 last level 03/15/21 Screening for malignant neoplasm of colon 384745701 Z12.11 per pt seen GI and had C scope 2017 , good for 10 years Active or passive immunization 733049327 Z23 up to date [id number] Kenneth Frederick MD [employer], [email or web address] [address] [place] [address] 10/16/2021 11:39:04 10/16/2021 12:28:54 Adult health examination 384603076 Z00.01 Benign hypertension 1072 5009 I10 last EKG 08/02/20BP 2 weeks Benign pro static hyperplasia without outflow obstruction 306732094 N40.0 seeing urology every 6 months , last visit 08/2018 Beta thala ssemia trait 623021500 D56.3 recheck CBC Blood gluc ose outside reference range 696617805 R73.09 Body mass index 25-29 - overweight 548336920 Z68.27 education Degenerati ve joint disease of shoulder region 82052362 M19.019 Rt on the X ray 11/28/19tyle nol 500 TID Diastolic dysfunction 35 11422 I50.30 Grad 1 @ last ECHO 2013 /will recheck Ex-cigarette smoker 2810 24977 Z87.891 quit smoking 1989 Hyperlipidemia 30015496 E78.5 last LD 08/01/20 @ goal , on rosuva , recheck Left ventr icular hypertrophy 14397854 I51.7 mod on ECHO 03/29/20 Microcytic hypochromic anemia 92714343 D50.9 last hematology eval 03/3021 Polyp of colon 84263097 K63.5 last C scope 2016 Prostate s pecific antigen above reference range 513685440 R97.20 sees urology once a yearlast visit 03/20/21las t PSA 03/15/21 Vitamin D deficiency 347 24835 E55.9 last level 03/15/21 Screening for malignant neoplasm of colon 592656168 Z12.11 per pt seen GI and had C scope 2016 , good for 10 years Active or passive immunization 681661309 Z23 up to date Advance di rective discussed with patient 365453568 Z71.89 education [id number] Kenneth Frederick MD [employer], [email or web address] [address] [place] [address] 04/24/2022 10:55:50 04/24/2022 11:56:31 Benign hypertension 21035706 I10 last EKG 10/16/21BP 2 weeks Benign pro static hyperplasia without outflow obstruction 189260767 N40.0 seeing urology every 12 months , last visit 02/2021 Beta thala ssemia trait 606774416 D56.3 recheck CBC Blood gluc ose outside reference range 787410925 R73.09 Body mass index 25-29 - overweight 239611186 Z68.27 education Ex-cigarette smoker 2810 99389 Z87.891 quit smoking 1990 Hyperlipidemia 58175445 E78.5 last LD 10/16/21 @ goal , on rosuva , Microcytic hypochromic anemia 02117492 D50.9 last hematology eval 03/3021 Polyp of colon 95136577 K63.5 last C scope 2016 Prostate s pecific antigen above reference range 488364628 R97.20 sees urology once a yearlast visit 03/20/21las t PSA 03/15/21 Vitamin D deficiency 347 14964 E55.9 last level 10/16/21 Screening for malignant neoplasm of colon 925679869 Z12.11 per pt seen GI and had C scope 2016 , good for 10 years Active or passive immunization 093302291 Z23 up to date [id number] Kenneth Frederick MD [facility] [address] [place] [address] 08/28/2022 09:20:04 08/28/2022 10:15:19 Benign hypertension 23003121 I10 last EKG 10/16/21BP 2 weeks Benign pro static hyperplasia without outflow obstruction 469621924 N40.0 seeing urology every 12 months , last visit 02/2021 Blood gluc ose outside reference range 177458410 R73.09 last A1c 04/24/22 Body mass index 25-29 - overweight 226212438 Z68.27 education Hyperlipidemia 63442200 E78.5 last LD 04/24/22 @ goal , on rosuva , Prostate s pecific antigen above reference range 375459106 R97.20 sees urology once a yearlast visit 03/20/21las t PSA 03/15/21 Vitamin D deficiency 347 06220 E55.9 last level 04/24/22 Infection of skin and/or subcutaneous tissue 65569705 L08.9 Screening for malignant neoplasm of colon 238503945 Z12.11 per pt seen GI and had C scope 2016 , good for 10 years Active or passive immunization 655962333 Z23 up to date [id number] Kenneth Frederick MD [employer], [email or web address] [address] [place] [address] 11/27/2022 08:41:18 11/27/2022 10:10:16 Adult health examination 946051243 Z00.01 Benign hypertension 1072 5009 I10 last EKG 10/16/21BP 2 weeks Benign pro static hyperplasia without outflow obstruction 389570022 N40.0 seeing urology every 12 months , last visit 02/2021 Anemia 975474162 D64.9 stable Beta thala ssemia trait 444308638 D56.3 recheck CBC Blood gluc ose outside reference range 557583447 R73.09 last A1c 04/24/22 Body mass index 25-29 - overweight 286147638 Z68.27 education Degenerati ve joint disease of shoulder region 84403709 M19.019 Rt on the X ray 11/28/19tyle nol 500 TID Diastolic dysfunction 35 62027 I50.30 Grad 1 @ last ECHO 2013 //will recheck Ex-cigarette smoker 2810 82864 Z87.891 quit smoking 1989 Hyperlipidemia 31833765 E78.5 last LD 04/24/22 @ goal , on rosuva , Left ventr icular hypertrophy 69003512 I51.7 mod on ECHO 03/29/20 Microcytic hypochromic anemia 48078978 D50.9 last hematology eval 03/3021 Polyp of colon 88197731 K63.5 last C scope 2016 Prostate s pecific antigen above reference range 970722813 R97.20 sees urology once a yearlast visit 03/20/21las t PSA 08/28/22 Vitamin D deficiency 347 37964 E55.9 last level 04/24/22 Speaks Vietnamese poorly 16 7975983 Z60.8 Screening for malignant neoplasm of colon 274128385 Z12.11 per pt seen GI and had C scope 2016 , good for 10 years Active or passive immunization 447456029 Z23 up to date [id number] Kenneth Frederick MD [employer], [email or web address] [address] [place] [address] 02/27/2023 08:42:02 02/27/2023 09:58:18 Benign hypertension 94301688 I10 last EKG 11/27/22BP 2 weeks Body mass index 25-29 - overweight 030477753 Z68.27 educationd own 5 LBs on diet and exercise Hyperlipidemia 04924784 E78.5 last LD 11/29/22 @ goal , on rosuva , Prostate s pecific antigen above reference range 400432043 R97.20 sees urology once a yearlast visit 03/20/21las t PSA 08/28/22 Vitamin D deficiency 347 40183 E55.9 last level 11/29/22 Screening for malignant neoplasm of colon 398554025 Z12.11 per pt seen GI and had C scope 2017 , good for 10 years Active or passive immunization 631648014 Z23 up to date [id number] Kenneth Frederick MD [employer], [email or web address] [address] [place] [address] 09/15/2023 10:33:36 09/15/2023 12:21:00 Benign hypertension 78851669 I10 last EKG 11/27/22BP 2 weeksper pt had optometry 10/2022 Benign pro static hyperplasia without outflow obstruction 083915572 N40.0 seeing urology every 12 months , last visit 02/2021 Beta thala ssemia trait 043287696 D56.3 recheck CBC Body mass index 25-29 - overweight 208150750 Z68.27 educationo n diet and exercise Hyperlipidemia 53491796 E78.5 last LD 11/29/22 @ goal , on rosuva , Vitamin D deficiency 347 52988 E55.9 last level 11/29/22 Prostate s pecific antigen above reference range 192895950 R97.20 sees urology once a yearlast visit 03/20/21las t PSA 08/28/22 [id number] Kenneth Frederick MD [employer], [facility] [address] [place] [address] 03/01/2024 10:12:28 03/01/2024 11:49:24 Adult health examination 107185549 Z00.01 Benign hypertension 1072 5009 I10 last EKG 11/27/22BP 2 weeksper pt had optometry 11/13/23 Benign pro static hyperplasia without outflow obstruction 323632105 N40.0 seeing urology every 12 months , last visit 02/2021 Anemia 993021920 D64.9 stable Blood gluc ose outside reference range 064641227 R73.09 last A1c 04/24/22 Body mass index 25-29 - overweight 115087785 Z68.27 educationo n diet and exercise Degenerati ve joint disease of shoulder region 73036969 M19.019 Rt on the X ray 11/28/19tyle nol 500 TID Diastolic dysfunction 35 92454 I50.30 Grad 1 @ last ECHO 2014 //will recheck Ex-cigarette smoker 2810 35953 Z87.891 quit smoking 1989 Hyperlipidemia 12305436 E78.5 last LD 09/15/23 @ goal , on rosuva , Prostate s pecific antigen above reference range 671954589 R97.20 sees urology once a yearlast visit 03/20/21las t PSA 09/15/23 Vitamin D deficiency 347 29966 E55.9 last level 09/15/23 Speaks Vietnamese poorly 16 3289146 Z60.8 Polyp of colon 24486731 K63.5 last C scope 2017 Screening for malignant neoplasm of colon 851681546 Z12.11 per pt seen GI and had C scope 2017 , good for 10 years Active or passive immunization 037733077 Z23 up to date Advance di rective discussed with patient 652724950 Z71.89 education Pain of ri ght knee joint 0785079175 61726 M25.561 ?? tendinitis [id number] Kenneth Frederick MD [facility], [facility] [address] [place] [address] 08/17/2024 11:08:46 08/17/2024 12:19:06 Bilateral ankle joint pain 7238768517 1776187 M25.571 Paresthesi a of lower extremity 232271463 R20.2 new Weak arterial pulse 3152 56264 R09.89 Rt DP and PT Benign hypertension 1072 5009 I10 last EKG 03/03/24BP 2 weeksper pt had optometry 11/13/23 Blood gluc ose outside reference range 625511158 R73.09 last A1c 04/24/22 Hyperlipidemia 95908785 E78.5 last LD 09/15/23 @ goal , on rosuva , Prostate s pecific antigen above reference range 289383008 R97.20 sees urology once a yearlast visit 03/20/21las t PSA 09/15/23 Vitamin D deficiency 347 61853 E55.9 last level 09/15/23 Screening for malignant neoplasm of colon 803437671 Z12.11 per pt seen GI and had C scope 2017 , good for 10 years Active or passive immunization 776033145 Z23 up to date Health Concerns Section Related Observation LastModified by Organization Detai ls LastModified Time None Recorded Concern Status LastModified by Organization Details LastModified Time None Recorded Advance Directives Directive N: Payers Encounter Date Sequence Insurance Name Policy Number Policy Osorio Covered Member ID Osorio Member ID Guarantor Name 11/27/2022 1 [place] Lynne T Maurer [id number] Lynne T Maurer 02/27/2023 1 [place] Lynne T Maurer [id number] Lynne T Maurer 09/15/2023 1 [employer] (MEDICARE REPLACEMENT/ ADVANTAGE - PPO) [id number] Lynne T Maurer [id number] Lynne T Maurer 03/01/2024 1 [employer] (MEDICARE REPLACEMENT/ ADVANTAGE - PPO) [id number] Lynne T Maurer [id number] Lynne T Maurer 08/17/2024 1 [employer] (MEDICARE REPLACEMENT/ ADVANTAGE - PPO) [id number] Lynne T Maurer [id number] Lynne T Maurer Notes Date Note Type Note Provider Name and Address Organization Details Recorded Time 11/27/2022 text/html Hypertension F/UReported bypatient.Medications: taking medications as directed; no side effects from medication Lifestyle:regular exercise; limiting/avoiding salt; compliant with low salt diet Associated Symptoms:no dizziness; no lightheadedness; no chest pain; no shortness of breath; no palpitations; no edema; no calf pain with exertion; no headacheMedicare Annual Wellness VisitReported bypatient.Diet and Nutrition:healthy diet Fracture Risk:no history of fractures; no recent explained fracture; no sudden unexplained fractures; no previous musculoskeletal injuries Physical Activity:exercises on a regular basis (walking); recent increase in physical activity; good physical condition; discussed exercise habits Depression Risk:never feels sad, empty, or tearful; no loss of interest in activities; no significant changes in weight; no sleep disturbances or insomnia; no agitation; no loss of energy; no feelings of worthlessness or guilt; no thoughts of suicide; no history of depression; no history of mood disorders Orientation:no disorientation to time; no disorientation to date; no disorientation to place Concentration and Memory:no decreased concentrating ability; no memory lapses or loss; does not forget words Speech/Motor difficulties:no speech difficulties; no difficulty expressing formulated concepts; no difficulty with fine manipulative tasks; no difficulty writing/copying; no slowed reaction time; does not knock things over when trying to pick them up Hearing:no loss of hearing Vision:no vision problems Activities of Daily Living:able to bathe with limited or no assistance; able to contol urination and bowels; able to dress with limited or no assistance; able to feed self with limited or no assistance; able to get out of chair or bed with limited or no assistance; able to groom with limited or no assistance; able to toilet with limited or no assistance Instrumental Activities of Daily Living:able to do house work with limited or no assistance; able to grocery shop with limited or no assistance; able to manage medications with limited or no assistance; able to manage money with limited or no assistance; able to prepare meals with limited or no assistance; able to use the phone with limited or no assistance Falls Risk Assessment:no frequent falls while walking; no fall in the past year; no fall since last visit; no dizziness/vertigo Home Safety:use of seatbelts; no vision or hearing loss while driving Kenneth Frederick MD [address] [place] [address] [address], [place], [address], [facility] 11/27/2022 09:53:56 02/27/2023 text/html Hypertension F/UReported bypatient.Medications: taking medications as directed; no side effects from medication Lifestyle:regular exercise; limiting/avoiding salt; compliant with low salt diet Associated Symptoms:no dizziness; no lightheadedness; no chest pain; no shortness of breath; no palpitations; no edema; no calf pain with exertion; no headacheMedicare Annual Wellness VisitReported bypatient.Falls Risk Assessment:no frequent falls while walking; no fall in the past year; no fall since last visit; no dizziness/vertigo Kenneth Frederick MD [address], [place], [address], [facility] 02/27/2023 09:52:15 09/15/2023 text/html Hypertension F/UReported bypatient.Medications: taking medications as directed; no side effects from medication Lifestyle:regular exercise; limiting/avoiding salt; compliant with low salt diet Associated Symptoms:no dizziness; no lightheadedness; no chest pain; no shortness of breath; no palpitations; no edema; no calf pain with exertion; no headache Kenneth Frederick MD [address], [place], [address], [facility] 09/15/2023 12:18:45 03/01/2024 text/html Hypertension F/UReported bypatient.Medications: taking medications as directed; no side effects from medication Lifestyle:regular exercise; limiting/avoiding salt; compliant with low salt diet Associated Symptoms:no dizziness; no lightheadedness; no chest pain; no shortness of breath; no palpitations; no edema; no calf pain with exertion; no headacheMedicare Annual Wellness VisitReported bypatient.Diet and Nutrition:healthy diet Fracture Risk:no history of fractures; no recent explained fracture; no sudden unexplained fractures; no previous musculoskeletal injuries Physical Activity:exercises on a regular basis; recent increase in physical activity; good physical condition; discussed exercise habits Depression Risk:never feels sad, empty, or tearful; no loss of interest in activities; no significant changes in weight; no sleep disturbances or insomnia; no agitation; no loss of energy; no feelings of worthlessness or guilt; no thoughts of suicide; no history of depression; no history of mood disorders Orientation:no disorientation to time; no disorientation to date; no disorientation to place Concentration and Memory:no decreased concentrating ability; no memory lapses or loss; does not forget words Speech/Motor difficulties:no speech difficulties; no difficulty expressing formulated concepts; no difficulty with fine manipulative tasks; no difficulty writing/copying; no slowed reaction time; does not knock things over when trying to pick them up Hearing:no loss of hearing Vision:no vision problems Activities of Daily Living:able to bathe with limited or no assistance; able to contol urination and bowels; able to dress with limited or no assistance; able to feed self with limited or no assistance; able to get out of chair or bed with limited or no assistance; able to groom with limited or no assistance; able to toilet with limited or no assistance Instrumental Activities of Daily Living:able to do house work with limited or no assistance; able to grocery shop with limited or no assistance; able to manage medications with limited or no assistance; able to manage money with limited or no assistance; able to prepare meals with limited or no assistance; able to use the phone with limited or no assistance Falls Risk Assessment:no frequent falls while walking; no fall in the past year; no fall since last visit; no dizziness/vertigo Home Safety:use of seatbelts; no vision or hearing loss while driving pain on and off ant lower Rt thigh Kenneth Frederick MD [address], [place], [address], [facility] 03/01/2024 11:18:51 08/17/2024 text/html Hypertension F/UReported bypatient.Medications: taking medications as directed; no side effects from medication Lifestyle:regular exercise; limiting/avoiding salt; compliant with low salt diet Associated Symptoms:no dizziness; no lightheadedness; no chest pain; no shortness of breath; no palpitations; no edema; no calf pain with exertion; no headache B/L ankle pain , more on the Rt , 2 weeks , no injury ,Low ext tingling , no injury , no urine incontinence Kenneth Frederick MD [address], [place], [address], [facility] 08/17/2024 12:11:36
--- OUTSIDE RECORDS SUMMARY | 2024-08-23 08:54 | XMS_ITS | Clinical Summary ---
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 Name Role Phone Stefano Driver DO Unavailable [phone] Kenneth Frederick MD Primary Care Provider [phone] Allergies No known active allergies Medications rosuvastatin [...] PPV23 10/08/2017 Tdap 03/22/2016 ZOSTER LIVE 04/11/2019 Surgical History Surgery Date Site/Laterality Comments COLONOSCOPY Medical History Medical History Date Comments Hypercholesteremia Hypertension Anemia Family History Medical History Relation Name Comments No Known Problems Mother Relation Name Status Comments Father Mother Social History Tobacco [...] on file 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 Gender Identity Not on file Sexual Orientation Not on file Occupation Industry Job Start Date Job End Date Retired Not on file Not on file Not on file Obstetrics History Last Filed Vital Signs Vital Sign Reading [...] on file Insurance MEDICARE MEDICARE Care Teams Edge Banding Machine Offbearer Relationship Specialty Start Date End Date Kenneth Frederick MD [address] [facility] [address] [place] [address] PCP - General Internal Medicine 04/24/21 Stefano Driver DO [address] [place] [address] MEDICAL ONCOLOGY, [facility] [address] [place] [address] Medical Oncologist/Household Appliances Service Technician Hematology and Oncology 04/24/21
== END 2024-08-23 08:34 | disposition home or self-care (01) ==
PROVIDERS: PCP Internal Medicine; Visit Provider Internal Medicine
DX: M25.571 Pain in right ankle and joints of right foot (principal); M25.572 Pain in left ankle and joints of left foot
CPT/HCPCS: 73610

== ENCOUNTER 2024-09-02 06:31 | Outpatient (CLI) | payer MEDICARE, SELFPAY ==
--- NOTE | ~2024-09-02 | MR_ITS ---
MRI of the lumbar spine Clinical History: Lower extremity paresthesia Technique: Axial T2-weighted images, and sagittal T1-weighted, T2-weighted, and T2 fat-sat images wer e acquired. Findings: There is no fracture or subluxation of the lumbar spine. Vertebral bodies maintain normal h eight and alignment. No bone marrow signal reality seen. At L1-L2 and L2-L3, there is no disc bulge or herniation. There is moderate facet arthropathy bilater ally these levels. No spinal canal stenosis or neural foraminal narrowing at these levels. At L3-L4, there is disc desiccation with minimal disc bulge and moderate facet arthropathy. No ismael central canal stenosis. Neural foramina are preserved. At L4-L5, there is diffuse disc bulge and severe facet arthropathy, resulting in severe spinal canal stenosis/thecal sac compression. Suspected small bilateral synovial cysts, right larger than left, th e larger cyst measuring 7 mm in diameter. Bilateral neural foramina are preserved. At L5-S1, there is minimal disc bulge with moderate to advanced facet arthropathy. No ismael central c anal stenosis. Bilateral neural foramina are preserved. Paravertebral soft tissues are unremarkable. Impression: Severe degenerative spondylosis at L4-L5, as detailed above. Reviewed, dictated and finalized at location . [employer] Impression: Severe degenerative spondylosis at L4-L5, as detailed above.
--- OUTSIDE RECORDS SUMMARY | 2024-09-02 06:37 | XMS_ITS | Data Portability ---
Author Organization [email or web address] [employer] Address [address] [address] Care Team Providers Care Certified Activities Director Name Role Phone KENNETH FREDERICK Primary Care [...] CMP, serum or plasma 2022 023 BELL [facility], [address] [facility], [place], [address], 12/02/2022 14:50:53 CBC w/ auto diff 2022 023 BELL [facility], [address] [place], [address], 12/02/2022 14:50:53 HbA1c (hemoglob in A1c), blood 2022 023 BELL [facility], [address] [place], [address], 12/04/2022 05:26:50 lipid panel, serum 2022 023 [facility], [address] [place], [address], 12/04/2022 05:27:39 vitamin D, 25-hydrox y, total, serum 2022 023 [facility], [address] [place], [address], 12/04/2022 05:27:20 CMP, serum or plasma 2022 023 [facility], [address] [place], [address], 02/28/2023 14:29:40 PSA, serum or plasma 2023 024 [facility], [address] [place], [address], 09/22/2023 04:03:13 vitamin D, 25-hydrox y, total, serum 2023 024 [facility], [address] [place], [address], 09/22/2023 04:03:13 CMP, serum or plasma 2023 024 [facility], [address] [place], [address], 09/16/2023 15:05:12 CBC w/ auto diff 2023 024 [facility], [address] [place], [address], 11/20/2023 00:26:58 lipid panel, serum 2023 024 [facility], [address] [place], [address], 11/20/2023 00:35:48 TSH, serum or plasma 2023 024 BELL [facility], [address] [place], [address], 09/22/2023 04:03:13 CMP, serum or plasma 2023 024 BONNE TERRE [facility], [address] [place], [address], 03/02/2024 15:44:48 CBC w/ auto diff 2023 024 [facility], [address] [place], [address], 03/02/2024 15:44:52 HbA1c (hemoglob in A1c), blood 2023 024 BONNE TERRE [facility], [address] [place], [address], 03/02/2024 15:44:47 C-peptide , serum 2023 024 [facility], [address] [place], [address], 03/08/2024 04:03:42 iron + TIBC + ferritin, serum 2023 024 BONNE TERRE [facility], [address] [place], [address], 03/08/2024 04:03:42 vitamin B12 + folate, serum or blood 2023 024 [facility], [address] [place], [address], 03/08/2024 04:03:42 TSH, serum or plasma 2023 024 B[address]RE [facility], [address] [place], [address], 03/08/2024 04:03:42 vitamin D, 25-hydrox y, total, serum 2023 024 [facility], [address] [place], [address], 03/08/2024 04:03:43 vitamin B12 + folate, serum or blood 2024 025 [facility], [address] [place], [address], 08/24/2024 04:09:43 HbA1c (hemoglob in A1c), blood 2024 025 [facility], [address] [place], [address], 08/18/2024 16:56:38 CMP, serum or plasma 2024 025 [facility], [address] [place], [address], 08/18/2024 16:56:40 CBC w/ auto diff 2024 025 [facility], [address] [place], [address], 08/18/2024 16:56:43 C-peptide , serum 2024 025 [facility], [address] [place], [address], 08/24/2024 04:09:43 lipid panel w/ direct LDL, serum 2024 025 [facility], [address] [place], [address], 08/24/2024 04:09:44 TSH, serum or plasma 2024 025 [facility], [address] [place], [address], 08/24/2024 04:09:44 PSA, serum or plasma 2024 025 [facility], [address] [place], [address], 08/24/2024 04:09:44 vitamin D, 25-hydrox y, total, serum 2024 025 [facility], [address] [place], [address], 08/24/2024 04:09:44 erythrocy te sedimenta tion rate by westergre n method 2024 025 [facility], [address] [place], [address], 08/17/2024 12:11:37 uric acid, serum or plasma 2024 025 [facility], [address] [place], [address], 08/18/2024 16:56:[address] referral 2022 023 BELL Gilliam, [address], [place], [address], 11/18/2023 08:22:00 urologist referral 2022 023 BELL Dominique MD, [address] [facility], [address], [place], [address], 12/19/2022 11:45:[address] referral 2022 023 BELL Gilliam, [address], [place], [address], 03/27/2023 05:35:06 Procedures None recorded. Surgeries None recorded. Imaging electroca rdiogram 2022 023 [facility], [facility], [address], [place], [address], 11/27/2022 17:02:26 electroca rdiogram 2023 024 [facility], [facility], [address], [place], [address], 03/03/2024 09:17:40 MRI, lumbar spine, w/o contrast 2024 025 [facility], [address] [address], [facility], [place], [address], 08/31/2024 18:17:07 XR, ankle, 3 or more view 2024 025 [facility], [address] [facility] [address], [place], [address], 08/23/2024 12:09:43 Medication Orders folic acid 1 mg tablet 2022 023 [facility] [address] [place], [address], 11/27/2022 09:53:41 Vitamin D3 125 mcg (5,000 unit) tablet 2022 023 [facility] [address] [facility] [address] [place], [address], 11/27/2022 09:53:41 rosuvasta tin 20 mg tablet 2023 024 BE[facility] [address] [place], [address], 03/01/2024 11:18:46 Tylenol Extra Strength 500 mg tablet 2023 024 BE[facility] [address] [address] [place], [address] [facility], [address], 03/01/2024 11:18:45 Aspercrem e (lidocain e HCl) 4 % topical 2023 024 [email or web address] [address] In [facility], [address], [place], [address], 03/15/2024 10:01:19 meloxicam 7.5 mg tablet 2024 025 BE[facility] [address] [facility], [address], [place], [address], 08/17/2024 12:11:27 Patient TargetsNo targets recorded. Patient Instructions Encounter Date Encounter Id Patient Instructions Last Modified By Organization Details Last Modified Time 11/27/2022 [id number] anemia: care instructions mshenouda Not available 11/27/2022 09:53:38 high cholesterol : care instructions mshenouda Not available 11/27/2022 09:53:38 prostate biopsy: about this test mshenouda Not available 11/27/2022 09:53:38 colon polyps: care instructions mshenouda Not available 11/27/2022 09:53:38 learning about healthy weight mshenouda Not available 11/27/2022 09:53:38 living will mshenouda Not available 09/2022 09:46:41 02/27/2023 [id number] prostate biopsy: about this test mshenouda Not available 02/27/2023 09:52:00 learning about healthy weight mshenouda Not available 02/27/2023 09:52:00 high cholesterol : care instructions mshenouda Not available 02/27/2023 09:52:00 09/15/2023 [id number] prostate biopsy: about this test mshenouda Not available 09/15/2023 12:16:09 learning about healthy weight mshenouda Not available 09/15/2023 12:16:09 high cholesterol : care instructions mshenouda Not available 09/15/2023 12:16:09 03/01/2024 [id number] anemia: care instructions mshenouda Not available 03/01/2024 11:18:36 high cholesterol : care instructions mshenouda Not available 03/01/2024 11:18:35 prostate biopsy: about this test mshenouda Not available 03/01/2024 11:18:35 colon polyps: care instructions mshenouda Not available 03/01/2024 11:18:35 learning about healthy weight mshenouda Not available 03/01/2024 11:18:36 living will mshenouda Not available 11/2023 11:10:44 08/17/2024 [id number] (KRISTY) ankle brachial index* BELL Not available 08/17/2024 14:22:39 high cholesterol : care instructions mshenouda Not available 08/17/2024 12:11:22 prostate biopsy: about this test mshenouda Not available 08/17/2024 12:11:22 Reason for Referral Urologist Referral for Prost ate specific antigen above reference range Referring Physician: Kenneth Frederick, Internal Medicine, Encounter Date: 11/27/2022 House Servant Referral for Jorge ign hypertension Referring Physician: Kenneth Frederick, Internal Medicine, Encounter Date: 11/27/2022 House Servant Referral for Jorge ign hypertension Referring Physician: Kenneth Frederick, Internal Medicine, Encounter Date: 02/27/2023 Results Created Date Observation Date Name Description Value Unit Range Abnormal Flag Note LastModifiedBy Organization Detail LastModifiedTime 11/28/19 23 11/27/2022 elect joel hopkins am No observ ation record ed. [facility], [facility] [address], [place], [address], 02/27/2023 09:44:30 11/28/19 23 11/27/2022 elect rocshari diogr am No observ ation record ed. [facility], [facility] [address], [place], [address], 02/27/2023 09:44:30 03/01/20 24 03/03/2024 elect rocshari tylergr am No observ ation record ed. [facility], [facility] [address], [place], [address], 08/17/2024 11:59:48 03/03/20 24 03/02/2024 georgiana hopkins am No observ ation record ed. [facility], [facility] [address], [place], [address], 08/17/2024 11:59:49 08/23/19 25 08/23/2024 XR, ankle , 3 or more view No observ ation record ed. [facility] [address], [place], [address], 08/23/2024 15:14:57 Result Notes None recorded. 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 723403125 Active 2024 Kenneth Frederick MD [address], [place], [address] , [facility] 5 22:58:34 Benign prostati c hyperpla josh without outflow obstruct ion 416997860 Active Not Available [facility] 3 12:27:11 Polyp of colon 65635299 Active Not Available [facility] 3 12:27:11 Diastoli c dysfunct ion 6898754 Active Not Available [facility] 3 12:27:11 Benign hyperten naz 26772893 Active Not Available [facility] 3 12:27:11 Blood glucose outside referenc e range 508175906 Active Not Available [facility] 3 12:27:11 Hyperlip idemia 80697289 Active Not Available [facility] 12:27:11 Divertic duke of intestin e 58921298 Completed 10/08/2017 Kenneth Frederick MD [address], [place], [address] , [facility] 8 14:54:58 Prostate specific antigen above referenc e range 254742101 Active Not Available [facility] 3 12:27:11 Vitamin D deficien cy 55426164 Active 2017 Not Available [facility] 3 12:27:11 Body mass index 25-29 - overweig ht 984322265 Active 2018 Not Available [facility] 3 12:27:11 Ex-cigar ette smoker 386150644 Active 2018 Not Available [facility] 3 12:27:11 Left ventricu lar hypertro phy 38443212 Active 2019 Not Available [facility] 3 12:27:11 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 Procedures Surgical History Date Name Laterality Status Provider Name and Address Organization Details Recorded Time 7 Colonoscopy completed Kenneth Frederick MD [address], [place], [address], [facility] 02/09/2019 15:12:20 9 Colonoscopy completed Ramya Valles [facility] 03/22/2016 08:42:00 Imaging Results Imaging Date Name Status LastModified by Organization Details LastModified Time 11/27/2022 electrocardiogram completed [facility], [facility] [address], [place], [address], 02/27/2023 09:44:30 11/27/2022 electrocardiogram completed [facility], [facility] [address], [place], [address], 02/27/2023 09:44:30 03/03/2024 electrocardiogram completed [facility], [facility] [address], [place], [address], 08/17/2024 11:59:48 03/02/2024 electrocardiogram completed [facility], [facility] [address], [place], [address], 08/17/2024 11:59:49 08/23/2024 XR, ankle, 3 or more view active [facility] [address] [facility] [address], [place], [address], 08/23/2024 15:14:57 Procedure Notes None recorded. Medical Equipment None [...] No t Available meloxicam 7.5 mg tablet TAKE 1 TABLET BY MOUTH EVERY DAY active Not Available Not Available No t Available lisinopril 10 mg tablet TAKE 1 TABLET [...] Available Not Available ezetimibe 10 mg tablet TAKE 1 TABLET BY MOUTH EVERY DAY active Not Available Not Available No t Available Metamucil 0.52 gram capsule Take 1 capsule every day by oral route. 2019 active Not Available Not Available Not Avai lable rosuvastati n 20 mg tablet TAKE 1 TABLET BY MOUTH EVERY DAY active Not Available Not Available No t Available Boostrix Tdap 2.5 Lf unit-8 mcg-5 Lf/0.5 mL intramuscul ar suspension 09/23 completed Not Available Not Available Not Available cholecalcif sven (vitamin D3) 125 mcg (5,000 unit) tablet TAKE 1 TABLET BY MOUTH EVERY DAY active Not Available Not Available No t Available Aspercreme (lidocaine HCl) 4 % topical Apply 1 applicati on(s) twice a day by topical route. 2023 active Not Available Not Available Not Avai lable Shingrix (PF) 50 mcg/0.5 mL intramuscul ar suspension, kit 07/30 completed Not Available Not Available Not Available Fluzone High-Dose Quad 2019-21 (PF) 240 mcg/0.7 mL IM syringe [facility] 01/16 completed Not Available Not Available Not Available Vitals Date Recorded Body height Body mass index (BMI) Body weight Body temperature Heart rate Respiratory rate Provider Name and Address Organization Details Last Updated DateTime 3 167.64 cm 28.7 kg/m2 25589.4 4 g 97.6 [degF] 60 /min 16 /min Yolanda Escamilla [facility] 3 09:04:18 Date Recorded Systolic blood pressure Diastolic blood pressure Provider Name and Address Organization Details Last Updated DateTime 11/27/2022 131 mm[Hg] 72 mm[Hg] Kenneth Frederick MD [address] [facility] [address], [place], [address], [facility] 11/27/2022 09:50:01 Date Recorded Body height Body mass index (BMI) Body weight Heart rate Respiratory rate Body temperature Systolic blood pressure Diastolic blood pressure Provider Name and Address Organization Details Last Updated DateTime 3 167.64 cm 27.9 kg/m2 79991.4 8 g 57 /min 16 /min 97.7 [degF] 134 mm[Hg] 74 mm[Hg] Yolanda Escamilla [facility] 3 09:10:50 Date Recorded Body height Body temperature Body mass index (BMI) Body weight Respiratory rate Heart rate Systolic blood pressure Diastolic blood pressure Provider Name and Address Organization Details Last Updated DateTime 4 167.64 cm 97.9 [degF] 27.6 kg/m2 66229.3 g 16 /min 57 /min 127 mm[Hg] 68 mm[Hg] Yolanda Escamilla [facility] 4 11:24:11 Date Recorded Body height Heart rate Respiratory rate Body temperature Body mass index (BMI) Body weight Systolic blood pressure Diastolic blood pressure Provider Name and Address Organization Details Last Updated DateTime 4 167.64 cm 58 /min 16 /min 97.9 [degF] 27.9 kg/m2 83705.4 8 g 130 mm[Hg] 69 mm[Hg] Simon Larson [facility] 4 10:43:44 Date Recorded Body height Body mass index (BMI) Body weight Body temperature Respiratory rate Heart rate Provider Name and Address Organization Details Last Updated DateTime 5 167.64 cm 27.9 kg/m2 48810.4 8 g 97.4 [degF] 16 /min 59 /min Yolanda Escamilla [facility] 5 11:18:30 Date Recorded Systolic blood pressure Diastolic blood pressure Provider Name and Address Organization Details Last Updated DateTime 08/17/2024 131 mm[Hg] 74 mm[Hg] Kenneth Frederick MD [address] [facility] [address], [place], [address], [place] [facility] 08/17/2024 11:59:47 Social History Question Answer Notes LastModified by Organizat ion Details LastModified Time Tobacco Smoking Status Former Smoker Not Available [facility] 05/12/2020 03:11:40 Do You Have An Advance Directive? No Information not available 05/14/2021 What Is Your Level Of Alcohol Consumption? Occasional [id number] Information not available 05/12/2020 What Is Your [...] Organization Details LastModified Time Mother Essential hypertension [email or web address] Not available 08:42:16 Medical History Condition Response Coronary Artery Disease N Other N Gout N Blood Diseases N Kidney Stones N Hyperthyroidism N Blood Transfusion N COPD N Depression N Anxiety Disorder N Muscle, Joint, or Bone Problems N Obesity N Vision or Eye Problems N Arthritis N Polyps N Infertility N Mental Disorder N Cancer N Stroke N Varicosities N Fibromyalgia N Headaches N Kidney Disease N Heart Problems N Ear or Hearing Problems N Hospitalizations N Eating Disorder N Skin Problems N MRSA exposure N Constipation N Tuberculosis N AIDS/HIV N Asthma N Hepatitis N Pulmonary Embolism N Chronic Ear Infections N Chicken Pox N Autism Spectrum Disorder (ASD) N Thrombophilias N Breast Cancer N Lung Disease N Hypothyroidism N Defects or Inherited Disease N Developmental or Behavioral Disorders N Breast Problem N Difficulty Swallowing N Anesthesia Complications N Meniere's disease N Endometriosis N Bladder or Kidney Problems N High Cholesterol N Liver Disease N Allergies/Hayfever N Thyroid Problems N GI Problems N ADD/ADHD N Anemia N Mental Illness N Diabetes N Ovarian Cancer N Bedwetting N Seizures/Epilepsy N Congestive Heart Failure (CHF) N Eczema N Abuse/Domestic Violence N Diverticulitis N Reflux/GERD N Heart Disease N Pre-Eclampsia N Hypertension N Osteoporosis N Immunizations Vaccine Type Date Status Note Provider Nam e and Address Organization Details Recorded Time Influenza, split virus, quadrivalent, preservative 8 completed Kenneth Frederick MD [address], [place], [address], [facility] 05/20/2023 15:00:26 pneumococcal polysaccharide PPV23 8 completed Kenneth Frederick MD [address], [place], [address], [facility] 05/20/2023 15:00:26 zoster live 9 completed Kenneth Frederick MD [address], [place], [address], [facility] 05/20/2023 15:00:27 Influenza, split virus, quadrivalent, preservative 9 completed Kenneth Frederick MD [address], [place], [address], [facility] 05/20/2023 15:00:26 Influenza, high-dose, quadrivalent, PF 0 completed Kenneth Frederick MD [address], [place], [address], [facility] 05/20/2023 15:00:26 Tdap 6 completed Kenneth Frederick MD [address], [place], [address], [facility] 05/20/2023 15:00:27 Pneumococcal conjugate PCV 13 6 completed Kenneth Frederick MD [address], [place], [address], [facility] 05/20/2023 15:00:27 SARS-COV-2 (COVID-19) vaccine, UNSPECIFIED 1 completed Kenneth Frederick MD [address], [place], [address], [facility] 05/20/2023 15:00:26 SARS-COV-2 (COVID-19) vaccine, UNSPECIFIED 2 completed Kenneth Frederick MD [address], [place], [address], [facility] 05/20/2023 15:00:26 Influenza, split virus, quadrivalent, preservative 1 completed Kenneth Frederick MD [address], [place], [address], [facility] 05/20/2023 15:00:26 influenza, unspecified formulation 2 completed Kenneth Frederick MD [address], [place], [address], [facility] 05/20/2023 15:00:26 Influenza, adjuvanted, quadrivalent, PF 3 completed Kenneth Frederick MD [address], [place], [address], [facility] 05/20/2023 15:00:26 COVID-19, mRNA, LNP-S, PF, toshia-sucrose, 30 mcg/0.3 mL 3 completed Kenneth Frederick MD [address], [place], [address], [facility] 05/20/2023 15:00:26 Influenza, high-dose, trivalent, PF 4 completed Kenneth Frederick MD [address], [place], [address], [facility] 05/04/2024 18:52:11 COVID-19, mRNA, LNP-S, PF, toshia-sucrose, 30 mcg/0.3 mL 4 completed Kenneth Frederick MD [address], [place], [address], [facility] 05/20/2024 17:51:27 Past Encounters Encounter ID Performer Location Encounter Start Date Encounter Closed Date Diagnosis/Indication Diagnosis SNOMED-CT Code Diagnosis ICD10 Code Diagnosis Note [id number] Kenneth Frederick MD [facility], [facility] [address] [place] [address] 03/22/2016 12:03:15 03/22/2016 12:37:08 Renewal of prescription 891765323 Z76.0 Benign hypertension 1072 5009 I10 Blood gluc ose outside reference range 390585725 R73.09 Prostate s pecific antigen above reference range 357148515 R97.2 Hyperlipidemia 54264547 E78.5 Polyp of colon 63033504 K63.5 Screening procedure 2012 5006 Z13.9 Active or passive immunization 955533769 Z23 Viral screening 67320697 4 Z11.59 Vitamin D deficiency 347 02220 E55.9 [id number] Kenneth Frederick MD [facility], [facility] [address] [place] [address] 10/10/2016 11:13:39 10/10/2016 12:45:14 Renewal of prescription 472021534 Z76.0 Benign hypertension 1072 5009 I10 per pt had optometry eval 06/2106 Blood gluc ose outside reference range 898976547 R73.09 Benign pro static hyperplasia without outflow obstruction 701432324 N40.0 with elevated PSA //per pt seen urology 06/2016 , will try to get note , will recheck PSA Diastolic dysfunction 35 19238 I50.30 Grad 1 @ last ECHO 2013will recheck Hyperlipidemia 13883221 E78.5 Polyp of colon 58032845 K63.5 [id number] Kenneth Frederick MD [facility], [facility] [address] [place] [address] 03/19/2017 10:00:20 03/19/2017 10:27:07 Renewal of prescription 799801320 Z76.0 Benign hypertension 1072 5009 I10 per pt had optometry eval 06/2106 Vitamin D deficiency 347 77693 E55.9 Hyperlipidemia 50354949 E78.5 Prostate s pecific antigen above reference range 110548605 R97.20 sees urology once a year Gastroesop hageal reflux disease without esophagitis 783430933 K21.9 Screening for malignant neoplasm of colon 735401250 Z12.11 per pt seen GI and had C scope 2016 ?? [id number] Kenneth Frederick MD [facility] [address] [place] [address] 06/26/2017 08:54:39 06/26/2017 09:27:44 Benign hypertension 78298758 I10 Blood gluc ose outside reference range 342947322 R73.09 Benign pro static hyperplasia without outflow obstruction 620758205 N40.0 seeing urology 07/24/17 per pt Hyperlipidemia 51216421 E78.5 Polyp of colon 17865879 K63.5 Active or passive immunization 443362399 Z23 [id number] Kenneth Frederick MD [facility] [address] [address] [place] [address] 10/08/2017 14:31:59 10/08/2017 15:06:40 Adult health examination 171231492 Z00.00 Benign hypertension 1072 5009 I10 Blood gluc ose outside reference range 422889863 R73.09 Benign pro static hyperplasia without outflow obstruction 528906161 N40.0 seeing urology 07/24/17 per pt Prostate s pecific antigen above reference range 828165728 R97.20 sees urology once a year Hyperlipidemia 80487875 E78.5 Polyp of colon 25119976 K63.5 Diverticul osis of colon without diverticulitis 256384663 K57.30 Vitamin D deficiency 347 10916 E55.9 Gastroesop hageal reflux disease without esophagitis 618202323 K21.9 education about PPI SE Left ventr icular hypertrophy 11674328 I51.7 mod on ECHO 10/31/2016 , Active or passive immunization 620790315 Z23 Screening for malignant neoplasm of colon 586363923 Z12.11 per pt seen GI and had C scope 2016 ?? , will try to get report [id number] Kenneth Frederick MD [facility] [employer], [facility] [address] [place] [address] 02/16/2018 12:19:20 02/16/2018 13:37:35 Benign hypertension 53552747 I10 Hyperlipidemia 19063069 E78.5 Vitamin D deficiency 347 13045 E55.9 Gastroesop hageal reflux disease without esophagitis 267596571 K21.9 education about PPI SE Benign pro static hyperplasia without outflow obstruction 122379037 N40.0 seeing urology 07/24/17 per pt Blood gluc ose outside reference range 956065465 R73.09 Screening for malignant neoplasm of colon 239572751 Z12.11 per pt seen GI and had C scope 2016 ?? Active or passive immunization 341876409 Z23 Ex-cigarette smoker 2810 46271 Z87.891 [id number] Kenneth Frederick MD [facility] [employer], [facility] [address] [place] [address] 08/25/2018 12:17:39 08/25/2018 13:29:16 Benign hypertension 23772823 I10 Hyperlipidemia 91670197 E78.5 Vitamin D deficiency 347 07148 E55.9 Gastroesop hageal reflux disease without esophagitis 028383504 K21.9 education about PPI SE Benign pro static hyperplasia without outflow obstruction 471531473 N40.0 seeing urology 07/24/17 per pt Blood gluc ose outside reference range 865337376 R73.09 Screening for malignant neoplasm of colon 113635605 Z12.11 per pt seen GI and had C scope 2016 ?? Active or passive immunization 699785242 Z23 Ex-cigarette smoker 2810 67945 Z87.891 Prostate s pecific antigen above reference range 181001643 R97.20 sees urology once a year [id number] Kenneth Frederick MD [facility] [employer], [facility] [address] [place] [address] 01/27/2019 11:08:25 01/27/2019 11:46:52 Adult health examination 624591634 Z00.01 Benign hypertension 1072 5009 I10 Hyperlipidemia 18491153 E78.5 last LD 08/25/18 Vitamin D deficiency 347 83511 E55.9 last level 08/25/18 Gastroesop hageal reflux disease without esophagitis 306390863 K21.9 education about PPI SE Benign pro static hyperplasia without outflow obstruction 187975923 N40.0 seeing urology every 6 months , last visit 08/2018 Prostate s pecific antigen above reference range 222101364 R97.20 sees urology once a year Blood gluc ose outside reference range 423379286 R73.09 Screening for malignant neoplasm of colon 329607972 Z12.11 per pt seen GI and had C scope 2016 ?? Active or passive immunization 123095950 Z23 Ex-cigarette smoker 2810 20203 Z87.891 quit smoking 1989 Body mass index 25-29 - overweight 443262137 Z68.27 [id number] Kenneth Frederick MD [employer], [employer] [address] [place] [address] 07/30/2019 10:32:27 07/30/2019 11:40:10 Benign hypertension 74450754 I10 Hyperlipidemia 50500648 E78.5 last LD 08/25/18 Diverticul osis of colon without diverticulitis 527505148 K57.30 Gastroesop hageal reflux disease without esophagitis 336351910 K21.9 education about PPI SE Vitamin D deficiency 347 20923 E55.9 last level 08/25/18 Prostate s pecific antigen above reference range 483915909 R97.20 sees urology once a yearlast visit 02/2019 , PSA was 5.9 Blood gluc ose outside reference range 544106734 R73.09 Screening for malignant neoplasm of colon 421568200 Z12.11 per pt seen GI and had C scope 2016 ?? Active or passive immunization 177159835 Z23 up to date Left ventr icular hypertrophy 53324429 I51.7 mod on ECHO 10/31/2016 , [id number] Kenneth Frederick MD [employer], [employer] [address] [place] [address] 01/27/2020 10:30:03 01/27/2020 11:15:50 Benign hypertension 64580725 I10 last EKG 07/30/19 Benign pro static hyperplasia without outflow obstruction 604849324 N40.0 seeing urology every 6 months , last visit 08/2018 Blood gluc ose outside reference range 043061690 R73.09 Body mass index 25-29 - overweight 088898246 Z68.27 education Hyperlipidemia 77728963 E78.5 last LD 07/30/19 above goal , changed to rosuva , recheck Vitamin D deficiency 347 77665 E55.9 last level 07/30/19 Screening for malignant neoplasm of colon 312239137 Z12.11 per pt seen GI and had C scope 2016 ?? Active or passive immunization 669692273 Z23 up to date Degenerati ve joint disease of shoulder region 26868079 M19.019 Rt on the X ray 11/28/19tyle nol 500 TID Left ventr icular hypertrophy 69165494 I51.7 mod on ECHO 10/31/2016 , recheck [id number] Kenneth Frederick MD [place] [facility] [employer], [facility] [address] [place] [address] 08/01/2020 10:03:14 08/01/2020 11:15:53 Adult health examination 351812586 Z00.01 Benign hypertension 1072 5009 I10 last EKG 07/30/19 Benign pro static hyperplasia without outflow obstruction 776919877 N40.0 seeing urology every 6 months , last visit 08/2018 Blood gluc ose outside reference range 094039266 R73.09 Body mass index 25-29 - overweight 368803479 Z68.27 education Degenerati ve joint disease of shoulder region 07024611 M19.019 Rt on the X ray 11/28/19tyle nol 500 TID Ex-cigarette smoker 2810 68337 Z87.891 quit smoking 1989 Hyperlipidemia 88173920 E78.5 last LD 01/27/20 @ goal , on rosuva , recheck Left ventr icular hypertrophy 13554510 I51.7 mod on ECHO 03/29/20 Polyp of colon 92560118 K63.5 last C scope 2016 Prostate s pecific antigen above reference range 166862732 R97.20 sees urology once a yearlast visit 02/2019 , PSA was 9.6 0n 01/27/20 Vitamin D deficiency 347 06424 E55.9 last level 07/30/19 Screening for malignant neoplasm of colon 298501954 Z12.11 per pt seen GI and had C scope 2017 , good for 10 years Active or passive immunization 580445369 Z23 up to date [id number] Kenneth Frederick MD [place] [facility], [facility] [address] [place] [address] 01/30/2021 09:25:48 01/30/2021 10:52:58 Benign hypertension 85358643 I10 last EKG 08/02/20incr ease lisinopril BP 2 weeks Benign pro static hyperplasia without outflow obstruction 301896763 N40.0 seeing urology every 6 months , last visit 08/2018 Body mass index 25-29 - overweight 043263870 Z68.27 education Diastolic dysfunction 35 20766 I50.30 Grad 1 @ last ECHO 2013 /will recheck Ex-cigarette smoker 2810 79771 Z87.891 quit smoking 1989 Hyperlipidemia 44773918 E78.5 last LD 08/01/20 @ goal , on rosuva , recheck Polyp of colon 69303272 K63.5 last C scope 2016 Prostate s pecific antigen above reference range 970250753 R97.20 sees urology once a yearlast visit 02/2019 , PSA was 7.4 on 08/01/20 Vitamin D deficiency 347 04632 E55.9 last level 07/30/19 Screening for malignant neoplasm of colon 292384983 Z12.11 per pt seen GI and had C scope 2017 , good for 10 years Active or passive immunization 540941919 Z23 up to date [id number] Kenneth Frederick MD [place] [facility] [employer], [facility] [address] [place] [address] 05/14/2021 10:34:21 05/14/2021 11:29:50 Benign hypertension 42098041 I10 last EKG 08/02/20incr ease lisinopril BP 2 weeks Benign pro static hyperplasia without outflow obstruction 065990805 N40.0 seeing urology every 6 months , last visit 08/2018 Beta thala ssemia trait 622674059 D56.3 Blood gluc ose outside reference range 737334337 R73.09 Body mass index 25-29 - overweight 611464308 Z68.27 education Hyperlipidemia 73282194 E78.5 last LD 08/01/20 @ goal , on rosuva , recheck Vitamin D deficiency 347 23397 E55.9 last level 03/15/21 Screening for malignant neoplasm of colon 799308782 Z12.11 per pt seen GI and had C scope 2016 , good for 10 years Active or passive immunization 335477986 Z23 up to date [id number] Kenneth Frederick MD [place] [employer], [facility] [address] [place] [address] 10/16/2021 11:39:04 10/16/2021 12:28:54 Adult health examination 648995121 Z00.01 Benign hypertension 1072 5009 I10 last EKG 08/02/20BP 2 weeks Benign pro static hyperplasia without outflow obstruction 187475779 N40.0 seeing urology every 6 months , last visit 08/2018 Beta thala ssemia trait 051304517 D56.3 recheck CBC Blood gluc ose outside reference range 786839604 R73.09 Body mass index 25-29 - overweight 718659105 Z68.27 education Degenerati ve joint disease of shoulder region 64998818 M19.019 Rt on the X ray 11/28/19tyle nol 500 TID Diastolic dysfunction 35 13762 I50.30 Grad 1 @ last ECHO 2013 recheck Ex-cigarette smoker 2810 39994 Z87.891 quit smoking 1989 Hyperlipidemia 34401552 E78.5 last LD 08/01/20 @ goal , on rosuva , recheck Left ventr icular hypertrophy 44012427 I51.7 mod on ECHO 03/29/20 Microcytic hypochromic anemia 64583164 D50.9 last hematology eval 03/3021 Polyp of colon 98801054 K63.5 last C scope 2016 Prostate s pecific antigen above reference range 608824749 R97.20 sees urology once a yearlast visit 03/20/21las t PSA 03/15/21 Vitamin D deficiency 347 12913 E55.9 last level 03/15/21 Screening for malignant neoplasm of colon 996438489 Z12.11 per pt seen GI and had C scope 2017 , good for 10 years Active or passive immunization 651708609 Z23 up to date Advance di rective discussed with patient 268747933 Z71.89 education [id number] Kenneth Frederick MD [place] [employer] [facility], [facility] [address] [place] [address] 04/24/2022 10:55:50 04/24/2022 11:56:31 Benign hypertension 37106456 I10 last EKG 10/16/21BP 2 weeks Benign pro static hyperplasia without outflow obstruction 874682018 N40.0 seeing urology every 12 months , last visit 02/2021 Beta thala ssemia trait 502211710 D56.3 recheck CBC Blood gluc ose outside reference range 909544012 R73.09 Body mass index 25-29 - overweight 786009384 Z68.27 education Ex-cigarette smoker 2810 14003 Z87.891 quit smoking 1989 Hyperlipidemia 64167510 E78.5 last LD 10/16/21 @ goal , on rosuva , Microcytic hypochromic anemia 06061479 D50.9 last hematology eval 03/3021 Polyp of colon 82615719 K63.5 last C scope 2016 Prostate s pecific antigen above reference range 716493484 R97.20 sees urology once a yearlast visit 03/20/21las t PSA 03/15/21 Vitamin D deficiency 347 35069 E55.9 last level 10/16/21 Screening for malignant neoplasm of colon 363895684 Z12.11 per pt seen GI and had C scope 2016 , good for 10 years Active or passive immunization 505827553 Z23 up to date [id number] Kenneth Frederick MD [facility] [employer], [employer] [address] [place] [address] 08/28/2022 09:20:04 08/28/2022 10:15:19 Benign hypertension 07224482 I10 last EKG 10/16/21BP 2 weeks Benign pro static hyperplasia without outflow obstruction 757864734 N40.0 seeing urology every 12 months , last visit 02/2021 Blood gluc ose outside reference range 566790218 R73.09 last A1c 04/24/22 Body mass index 25-29 - overweight 810759186 Z68.27 education Hyperlipidemia 29480333 E78.5 last LD 04/24/22 @ goal , on rosuva , Prostate s pecific antigen above reference range 687416459 R97.20 sees urology once a yearlast visit 03/20/21las t PSA 03/15/21 Vitamin D deficiency 347 71491 E55.9 last level 04/24/22 Infection of skin and/or subcutaneous tissue 29746079 L08.9 Screening for malignant neoplasm of colon 298485594 Z12.11 per pt seen GI and had C scope 2016 , good for 10 years Active or passive immunization 378408576 Z23 up to date [id number] Kenneth Frederick MD [facility] [employer], [facility] [address] [place] [address] 11/27/2022 08:41:18 11/27/2022 10:10:16 Adult health examination 797455069 Z00.01 Benign hypertension 1072 5009 I10 last EKG 10/16/21BP 2 weeks Benign pro static hyperplasia without outflow obstruction 445682450 N40.0 seeing urology every 12 months , last visit 02/2021 Anemia 820043204 D64.9 stable Beta thala ssemia trait 059150010 D56.3 recheck CBC Blood gluc ose outside reference range 525486218 R73.09 last A1c 04/24/22 Body mass index 25-29 - overweight 209451064 Z68.27 education Degenerati ve joint disease of shoulder region 51647298 M19.019 Rt on the X ray 11/28/19tyle nol 500 TID Diastolic dysfunction 35 64530 I50.30 Grad 1 @ last ECHO 2013 //will recheck Ex-cigarette smoker 2810 68156 Z87.891 quit smoking 1989 Hyperlipidemia 36456662 E78.5 last LD 04/24/22 @ goal , on rosuva , Left ventr icular hypertrophy 11324438 I51.7 mod on ECHO 03/29/20 Microcytic hypochromic anemia 63673085 D50.9 last hematology eval 03/3021 Polyp of colon 52330086 K63.5 last C scope 2016 Prostate s pecific antigen above reference range 337241195 R97.20 sees urology once a yearlast visit 03/20/21las t PSA 08/28/22 Vitamin D deficiency 347 69200 E55.9 last level 04/24/22 [employer] [place] poorly 16 1732751 Z60.8 Screening for malignant neoplasm of colon 001290259 Z12.11 per pt seen GI and had C scope 2017 , good for 10 years Active or passive immunization 893310787 Z23 up to date [id number] Kenneth Frederick MD [facility] [employer], [facility] [address] [place] [address] 02/27/2023 08:42:02 02/27/2023 09:58:18 Benign hypertension 08262451 I10 last EKG 11/27/22BP 2 weeks Body mass index 25-29 - overweight 958401711 Z68.27 educationd own 5 LBs on diet and exercise Hyperlipidemia 49062453 E78.5 last LD 11/29/22 @ goal , on rosuva , Prostate s pecific antigen above reference range 250004203 R97.20 sees urology once a yearlast visit 03/20/21las t PSA 08/28/22 Vitamin D deficiency 347 25004 E55.9 last level 11/29/22 Screening for malignant neoplasm of colon 994883693 Z12.11 per pt seen GI and had C scope 2017 , good for 10 years Active or passive immunization 237513924 Z23 up to date [id number] Kenneth Frederick MD [facility] [employer], [facility] [address] [place] [address] 09/15/2023 10:33:36 09/15/2023 12:21:00 Benign hypertension 80949417 I10 last EKG 11/27/22BP 2 weeksper pt had optometry 10/2022 Benign pro static hyperplasia without outflow obstruction 973293937 N40.0 seeing urology every 12 months , last visit 02/2021 Beta thala ssemia trait 412531741 D56.3 recheck CBC Body mass index 25-29 - overweight 804088653 Z68.27 educationo n diet and exercise Hyperlipidemia 55425053 E78.5 last LD 11/29/22 @ goal , on rosuva , Vitamin D deficiency 347 31811 E55.9 last level 11/29/22 Prostate s pecific antigen above reference range 096650428 R97.20 sees urology once a yearlast visit 03/20/21las t PSA 08/28/22 [id number] Kenneth Frederick MD [facility] [employer], [facility] [address] [place] [address] 03/01/2024 10:12:28 03/01/2024 11:49:24 Adult health examination 497098175 Z00.01 Benign hypertension 1072 5009 I10 last EKG 11/27/22BP 2 weeksper pt had optometry 11/13/23 Benign pro static hyperplasia without outflow obstruction 276622554 N40.0 seeing urology every 12 months , last visit 02/2021 Anemia 062277085 D64.9 stable Blood gluc ose outside reference range 372193367 R73.09 last A1c 04/24/22 Body mass index 25-29 - overweight 566929478 Z68.27 educationo n diet and exercise Degenerati ve joint disease of shoulder region 51524174 M19.019 Rt on the X ray 11/28/19tyle nol 500 TID Diastolic dysfunction 35 35948 I50.30 Grad 1 @ last ECHO 2013 //will recheck Ex-cigarette smoker 2810 26641 Z87.891 quit smoking 1989 Hyperlipidemia 69157214 E78.5 last LD 09/15/23 @ goal , on rosuva , Prostate s pecific antigen above reference range 610027326 R97.20 sees urology once a yearlast visit 03/20/21las t PSA 09/15/23 Vitamin D deficiency 347 83317 E55.9 last level 09/15/23 [employer] [place] poorly 16 6276870 Z60.8 Polyp of colon 09747122 K63.5 last C scope 2016 Screening for malignant neoplasm of colon 167729962 Z12.11 per pt seen GI and had C scope 2016 , good for 10 years Active or passive immunization 315054250 Z23 up to date Advance di rective discussed with patient 337429250 Z71.89 education Pain of ri ght knee joint 0578391634 10018 M25.561 ?? tendinitis [id number] Kenneth Frederick MD [facility] [employer], [employer] [address] [place] [address] 08/17/2024 11:08:46 08/17/2024 12:19:06 Bilateral ankle joint pain 7026915182 3322119 M25.571 Paresthesi a of lower extremity 343330776 R20.2 new Weak arterial pulse 3152 02246 R09.89 Rt DP and PT Benign hypertension 1072 5009 I10 last EKG 03/03/24BP 2 weeksper pt had optometry 11/13/23 Blood gluc ose outside reference range 943303908 R73.09 last A1c 04/24/22 Hyperlipidemia 36135693 E78.5 last LD 09/15/23 @ goal , on rosuva , Prostate s pecific antigen above reference range 391436128 R97.20 sees urology once a yearlast visit 03/20/21las t PSA 09/15/23 Vitamin D deficiency 347 86144 E55.9 last level 09/15/23 Screening for malignant neoplasm of colon 432128819 Z12.11 per pt seen GI and had C scope 2017 , good for 10 years Active or passive immunization 950358765 Z23 up to date Health Concerns Section Related Observation LastModified by Organization Detai ls LastModified Time None Recorded Concern Status LastModified by Organization Details LastModified Time None Recorded Advance Directives Directive N: Payers Encounter Date Sequence Insurance Name Policy Number Policy Osorio Covered Member ID Osorio Member ID Guarantor Name 11/27/2022 1 [place] Lynne T Maurer [id number] Lynne T Maurer 02/27/2023 1 [place] Lynne T Maurer [id number] Lynne T Maurer 09/15/2023 1 [employer] (MEDICARE REPLACEMENT/ ADVANTAGE - PPO) [id number] Lynne T Maurer [id number] Lynne T Maurer 03/01/2024 1 [employer] (MEDICARE REPLACEMENT/ ADVANTAGE - PPO) [id number] Lynne T Maurer [id number] Lynne T Maurer 08/17/2024 1 [employer] (MEDICARE REPLACEMENT/ ADVANTAGE - PPO) [id number] Lynne T Maurer [id number] Lynne T Maurer Notes Date Note Type [...] hearing loss while driving Kenneth Frederick MD [address] [place] [address] [address], [place], [address], [facility] 11/27/2022 09:53:56 02/27/2023 text/html Hypertension F/UReported [...] visit; no dizziness/vertigo Kenneth Frederick MD [address] [facility] [address], [place], [address], [facility] 02/27/2023 09:52:15 09/15/2023 text/html Hypertension F/UReported bypatient.Medications: taking medications as directed; no side effects from medication Lifestyle:regular exercise; limiting/avoiding salt; compliant with low salt diet Associated Symptoms:no dizziness; no lightheadedness; no chest pain; no shortness of breath; no palpitations; no edema; no calf pain with exertion; no headache Kenneth Frederick MD [address] [facility] [address], [place], [address], [facility] 09/15/2023 12:18:45 03/01/2024 text/html Hypertension F/UReported [...] lower Rt thigh Kenneth Frederick MD [address] [facility] [address], [place], [address], [facility] 03/01/2024 11:18:51 08/17/2024 text/html Hypertension F/UReported [...] no urine incontinence Kenneth Frederick MD [address] [facility] [address], [place], [address], [facility] 08/17/2024 12:11:36
--- OUTSIDE RECORDS SUMMARY | 2024-09-02 06:37 | XMS_ITS | Clinical Summary ---
Author Organization [facility] Address [facility] [place] [address] Care Team Providers Care Delphi Programmer Name Role Phone Kenneth Frederick MD Primary Care Provider [phone] Allergies No known active allergies Medications aspirin [...] 60 03/20/2021 11:40 AM CDT Temperature 36.2 C (97.2 F) 03/20/2021 11:40 AM CDT Respiratory Rate 16 03/20/2021 11:40 AM CDT [...] complete this topic Insurance MEDICARE Care Teams Delphi Programmer Relationship Specialty Start Date End Date Kenneth Frederick MD PCP - General INTERNAL MEDICINE 09/24/18
--- OUTSIDE RECORDS SUMMARY | 2024-09-02 06:38 | XMS_ITS | Clinical Summary ---
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 Gender Identity Not on file Sexual Orientation Not on file Occupation Industry Job Start Date Job End Date Retired Not on file Not on file Not on file Obstetrics History Last Filed Vital Signs Vital Sign Reading Time Taken Comments Blood Pressure 167/89 04/26/2021 8:44 AM CDT Pulse 56 04/26/2021 8:44 AM CDT Temperature 36.4 C (97.5 F) 04/26/2021 8:44 AM CDT Respiratory Rate 16 04/26/2021 8:44 AM CDT Oxygen Saturation 98% 04/26/2021 8:44 AM CDT Inhaled Oxygen Concentration - - Weight 78.9 kg (174 lb) 04/26/2021 8:44 AM CDT Height 163.8 cm (5' 4.5 ) 04/26/2021 8:44 AM CDT Body Mass Index 29.41 04/26/2021 8:44 AM CDT Plan of Treatment Not on file Insurance MEDICARE MEDICARE Care Teams Channel Opener Outsoles Relationship Specialty Start Date End Date Kenneth Frederick MD [address] [facility] [address] [place] [address] PCP - General Internal Medicine 04/24/21 Stefano Driver DO [address] [place] [address] MEDICAL ONCOLOGY, [facility] [address] [place] [address] Medical Oncologist/Stone Sandblaster Hematology and Oncology 04/24/21
--- OUTSIDE RECORDS SUMMARY | 2024-09-02 06:38 | XMS_ITS | Encounter Summary ---
Author Organization [facility] Address [address] [place] [address] Care Team Providers Care Manager Utilities Name Role Phone Kenneth Frederick MD Primary Care Provider [phone] Encounter Details Date Type Department Care Team (Latest Contact Info) Description 06/02/2018 Abstract [facility] , Giana Quintero MD Social [...] on filedocumented in this encounter Care Teams Manager Utilities Relationship Specialty Start Date End Date Kenneth Frederick MD PCP - General INTERNAL MEDICINE 09/24/18 documented as of this encounter
--- OUTSIDE RECORDS SUMMARY | 2024-09-02 06:38 | XMS_ITS | Referral Summary ---
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
== END 2024-09-02 06:32 | disposition home or self-care (01) ==
PROVIDERS: PCP Internal Medicine; Visit Provider Internal Medicine
DX: M47.896 Other spondylosis, lumbar region (principal)
CPT/HCPCS: 72148